=== PATIENT | male | born 1940 | race Caucasian/White ===

== ENCOUNTER 2019-10-30 16:17 | Inpatient (IN) | payer MEDICARE, OTHER ==
[~2019-10-30] VITALS: Ht 167.6 cm; Wt 83.9 kg
[2019-10-30] MEDS ORDERED: ASPI-1169 PO (16:29)
[2019-10-30] MEDS ORDERED: APIX5TAB PO (16:29)
[2019-10-30] MEDS ORDERED: ROSU5TAB PO (16:29)
[2019-10-30] MEDS ORDERED: HALO5TAB PO (16:29)
[2019-10-30] MEDS ORDERED: CARV12.52 PO (16:29)
[2019-10-30] MEDS ORDERED: REPA2TAB10 PO (16:29)
[2019-10-30] MEDS ORDERED: GABA600T12 PO (16:29)
[2019-10-30] MEDS ORDERED: TAMS-12 PO (16:29)
[2019-10-30] MEDS ORDERED: METF-881 PO (16:29)
[2019-10-30] MEDS ORDERED: AMLO5TAB4 PO (16:29)
[2019-10-30] MEDS ORDERED: DOCU-141 PO (16:29)
[2019-10-30] MEDS ORDERED: TOPI100T38 PO (16:29)
[2019-10-30] MEDS ORDERED: CLON0.5T4 PO (16:29)
[2019-10-30] MEDS ORDERED: FLUO20CA42 PO (16:29)
[2019-10-30] MEDS ORDERED: PANT40TA2 PO (16:29)
[2019-10-30] MEDS ORDERED: MISO200T PO (16:29)
[2019-10-30] MEDS ORDERED: OXYB-58 PO (16:29)
[2019-10-30] MEDS ORDERED: ZOLP5TAB8 PO (16:29)
[2019-10-30] MEDS ORDERED: FURO-145 PO (16:29)
[2019-10-30] MEDS ORDERED: IV NS 0.9% 1,000 ML BAG IV ONE (16:30)
--- NOTE | 2019-10-30 16:36 | NUR ---
[facility]AIAH FROM SNF TO ER BED 12. AAOX2. NOT IN RESP DISTRESS. BROUGHT IN FOR NOT TAKING HIS MEDICATION AND NOT EATING. FOR PSYCH AND MEDICAL EVALUATION. PT DENIES THAT HE IS SUICIDAL NOR HOMICIDAL. DENIES ANY HALLUCINATIONS. MD WAS AT THE BEDSIDE FOR EVAL. ORDERS RECEIVED NOTED AND CARREID OUT
[2019-10-30 17:15] LABS: HEMATOCRIT 41 % (39-51); LYMPHOCYTES # (AUTO) 1.9 /CMM (0.8-4.8); MEAN CORPUSCULAR HGB CONC 33 g/dl (31.0-36.0); NEUTROPHILS # (AUTO) 5.9 /CMM (1.8-8.9); WHITE BLOOD COUNT (AUTO) 8.9 K/uL (4.3-11.0)
[2019-10-30 17:18] LABS: BASOPHILS % (AUTO) 0.6 % (0.0-2.0); EOSINOPHILS % (AUTO) 1.6 % (0.0-6.0); HEMOGLOBIN 13.4 g/dL (13.5-17.5); MEAN CORPUSCULAR VOLUME 90 fL (80-96); MONOCYTES # (AUTO) 0.9 /CMM (0.1-1.30); MONOCYTES % (AUTO) 10.3 % (2.0-12.0); NEUTROPHILS % (AUTO) 66.5 % (43.0-81.0); PLATELET COUNT (AUTO) 434 /CMM (150-450); RED BLOOD CELL COUNT(AUTO) 4.58 MIL/uL (4.5-6.0)
[2019-10-30 17:30] LABS: CREATININE 1.2 mg/dL (0.6-1.3); POTASSIUM 4.3 mmol/L (3.5-5.1)
[2019-10-30 17:36] LABS: ALBUMIN 2.7 g/dL (3.4-5.0); BILIRUBIN,DIRECT 0.1 mg/dL (0.0-0.2); BILIRUBIN,TOTAL 0.3 mg/dL (0.2-1.0); TOTAL PROTEIN, SERUM 7.9 g/dL (6.4-8.2)
[2019-10-30 19:29] LABS: APPEARANCE,URINE Clear (CLEAR); BILIRUBIN,URINE MODERATE (NEGATIVE); BLOOD, URINE Trace-lysed Ery/uL (NEGATIVE); COLOR,URINE Yellow (YELLOW); KETONES,URINE 40 (NEGATIVE); LEUKOCYTE ESTERASE ,URINE Trace (NEGATIVE); NITRITE, URINE Negative (NEGATIVE); PH,URINE 5.5 (5.0-8.0); PROTEIN,URINE 30 mg/dl (NEGATIVE); UGLUCOSE Negative (NEGATIVE); UROBILINOGEN,URINE 0.2 EU/dL (0.2)
[2019-10-30 19:47] LABS: BACTERIA,URINE Few /HPF (None Seen); HYALINE CASTS, URINE Few /LPF (None Seen); SQUAMOUS EPITHELIAL CELL,UR Few /HPF (None Seen); URINE AMORPHOUS URATE Few /HPF (None Seen); WBC,URINE 21-50 /HPF (0-3)
[2019-10-30 19:48] LABS: MUCUS,URINE Few /LPF (None Seen)
--- NOTE | 2019-10-30 21:55 | NUR ---
report given to [facility] for [facility]amin
--- NOTE | 2019-10-30 22:15 | NUR ---
PT WAS TRANSPORTED TO UNIT ON BGURNEY WITH EMT AND RN AT BEDSIDE W/ ACLS PROTOCOL. NAD NOTED DURING TRANSPORT.
[2019-10-30] MEDS ORDERED: IV NS 0.9% 1,000 ML IV SCH (23:30)
[2019-10-31] VITALS (7 sets, daily range): BP systolic 123–180; BP diastolic 60–90
--- NOTE | 2019-10-31 05:42 | NUR ---
RN notes Admitted a 79 year old male from ER via stretcher with with diagnosis of acute coronary syndrome. Alert and oriented. Able to verbally communicate needs. No complaint of pain or discomfort. On room air breathing even and unlabored. Kept clean and dry. Will endorse to next shift for continuity of care.
[2019-10-31 07:00] LABS: BASOPHILS % (AUTO) 0.7 % (0.0-2.0); EOSINOPHILS % (AUTO) 2.6 % (0.0-6.0); HEMATOCRIT 37 % (39-51); HEMOGLOBIN 11.8 g/dL (13.5-17.5); LYMPHOCYTES # (AUTO) 1.8 /CMM (0.8-4.8); LYMPHOCYTES % (AUTO) 27.2 % (20.0-44.0); MEAN CORPUSCULAR HGB CONC 32 g/dl (31.0-36.0); MEAN CORPUSCULAR VOLUME 91 fL (80-96); MONOCYTES # (AUTO) 0.8 /CMM (0.1-1.30); MONOCYTES % (AUTO) 11.7 % (2.0-12.0); NEUTROPHILS # (AUTO) 3.8 /CMM (1.8-8.9); NEUTROPHILS % (AUTO) 57.8 % (43.0-81.0); PLATELET COUNT (AUTO) 376 /CMM (150-450); RED BLOOD CELL COUNT(AUTO) 4.05 MIL/uL (4.5-6.0); WHITE BLOOD COUNT (AUTO) 6.6 K/uL (4.3-11.0)
[2019-10-31 07:24] LABS: ALBUMIN 2.2 g/dL (3.4-5.0); BILIRUBIN,TOTAL 0.4 mg/dL (0.2-1.0); CALCIUM, SERUM 8.8 mg/dL (8.5-10.1); MAGNESIUM 1.8 mg/dL (1.8-2.4); PHOSPHORUS 3.8 mg/dL (2.5-4.9); TOTAL PROTEIN, SERUM 6.6 g/dL (6.4-8.2)
--- NOTE | 2019-10-31 07:55 | NUR ---
RN NOTES RECEIVED HAND OFF REPORT FROM ARRON YU FOR DELMY UNTIIL REPLACEMENT RN ARRIVES. WILL CONT. TO MONITOR
[2019-10-31 08:07] LABS: POTASSIUM 3.9 mmol/L (3.5-5.1)
[2019-10-31 08:33] LABS: EOSINOPHILS % (MANUAL) 2 % (0-4); LYMPHOCYTES % (MANUAL) 22 % (16-48); MONOCYTES % (MANUAL) 8 % (0-11.0); NEUTROPHILS % (MANUAL) 68 (42-76)
--- NOTE | 2019-10-31 08:45 | NUR ---
RN OPENING NOTES RECEIVED REPORT FROM KENYON YU. PT IN BED. AWAKE, ALERT AND ORIENTED. NO CARDIAC OR RESPIRATORY DISTRESS NOTED. NO SOB NOTED. SATURATING WELL ON ROOM AIR. IV ACCESS NOTED ON R AC G20. INTACT AND PATENT ANF FLUSHING WELL WITH NS RUNNING AT 70ML/HR. SAFETY PRECAUTIONS IN PLACE. BED LOCKED AND IN LOW POSITION. SIDE RAILS UP X2. BED ALARM ON. CALL LIGHT WITHIN REACH.
[2019-10-31] MEDS ORDERED: MISOPROSTOL 200 MCG TABLET PO SCH (09:00)
[2019-10-31] MEDS: REPAGLINIDE 2 MG TABLET PO SCH ×2 (09:00→12:42)
[2019-10-31] MEDS: TOPIRAMATE 100 MG TABLET PO SCH ×3 (09:29→16:28)
[2019-10-31] MEDS: METFORMIN XR 500 MG TAB.SR.24H PO SCH ×3 (09:30→16:28)
[2019-10-31] MEDS: HALOPERIDOL 5 MG TABLET PO SCH ×3 (09:30→16:28)
[2019-10-31] MEDS: OXYBUTYNIN CHLORIDE ER 5 MG TAB PO SCH ×2 (09:30→09:31)
[2019-10-31] MEDS: FLUOXETINE HCL 20 MG CAPSULE PO SCH (09:30)
[2019-10-31] MEDS: GABAPENTIN 300 MG CAPSULE PO SCH ×5 (09:30→21:00)
[2019-10-31] MEDS: clonazePAM 0.5 MG TABLET PO SCH ×3 (09:30→16:28)
[2019-10-31] MEDS: AMLODIPINE BESYLATE 5 MG TABLET PO SCH (09:30)
[2019-10-31] MEDS: FUROSEMIDE 20 MG TABLET PO SCH ×2 (09:30→09:31)
[2019-10-31] MEDS: CARVEDILOL 12.5 MG TABLET PO SCH ×3 (09:30→21:00)
[2019-10-31] MEDS: ASPIRIN 81 MG TAB.CHEW PO SCH (09:30)
[2019-10-31] MEDS: APIXABAN 5 MG TABLET PO SCH ×3 (09:30→16:27)
[2019-10-31] MEDS: DOCUSATE SODIUM 100 MG CAPSULE PO SCH ×2 (09:30→16:27)
--- NOTE | 2019-10-31 10:00 | NUR ---
REFUSED ALL AM MEDS PT REFUSED ALL AM MEDS. STATES HE HASNT BEEN TAKING HIS MEDICATION FOR A MONTH NOW. EDUCATED PT REGARDING RISKS, CONSEQUENCES AND NEGATIVE OUTCOMES OF NON COMPLIANT BEHAVIORS. PT STILL REFUSED.
--- NOTE | 2019-10-31 10:15 | NUR ---
SEEN BY PSYCH PT SEEN BY DR. LIMA PSYCHIATRY VIA [employer]. NOTIFIED MD REGARDING PTS NON COMPLIANCE WITH MEDICATIONS. MD SPOKE TO PT. PT STILL REFUSED.
[2019-10-31] MEDS ORDERED: IV NS 0.9% 1,000 ML IV PRN (11:30)
--- NOTE | 2019-10-31 11:45 | NUR ---
RECHECKED BP BP RECHECKED NOW STABLE AT 123/60. DR. WEATHERS MADE AWARE.
--- NOTE | 2019-10-31 12:00 | NUR ---
SEEN BY DR. WEATHERS PT SEEN BY DR. WEATHERS VIA [employer]. NOTIFIED MD REGARDING PTS NON COMPLIANCE WITH MEDICATIONS. MD SPOKE TO PT. PT STILL REFUSED.
--- NOTE | 2019-10-31 12:05 | NUR ---
CRESTOR/PRANDIN ALSO NOTIFIED DR. WEATHERS THAT ACCORDING TO PHARMACY, THE HOSPITAL DOES NOT SUPPLY PRANDIN. PER MD, HE MAY DISCONTINUE MEDICATION. SINCE PT MIGHT NOT NEED IT. ALSO NOTIFIED MD REGARDING CRESTOR AND PTS ALLERGY TO STATINS. ACCORDING TO PT HE WAS TAKING CRESTOR BEFORE BUT WAS NOT EXPERIENCING ANY SIDE EFFECTS. HOWEVER, ACCORDING TO DR. WEATHERS ALL OF THESE ARE POINTLESS IF PT IS REFUSING ALL HIS MEDICATIONS. PT STILL ADAMANT ABOUT NOT TAKING MEDS. EXPLAINED RISKS, CONSEQUENCES AND NEGATIVE OUTCOMES OF HIS NON COMPLIANT BEHAVIORS. STILL REFUSED.
[2019-10-31] MEDS: MISOPROSTOL 100 MCG TABLET PO SCH ×3 (12:41→21:00)
--- NOTE | 2019-10-31 13:00 | NUR ---
REFUSED ALL NOON MEDS PT REFUSED ALL NOON TIME MEDS. EXPLAINED RISKS, CONSEQUENCES AND NEGATIVE OUTCOMES OF NON COMPLIANT BEHAVIORS. STILL REFUSED. DR. WEATHERS MADE AWARE.
--- NOTE | 2019-10-31 14:19 | NUR ---
DR. WEATHERS NOTIFIED PATIENT PCR COVID NEGATIVE,NURSING SUP MADE AWARE,AWAITS NONCOVID FLOOR.
--- NOTE | 2019-10-31 14:20 | NUR ---
TRANSFER TO MS FLOOR PT WAS TRANSFERRED TO MS FLOOR. NON COVID UNIT SINCE PT COVID PCR RESULTS CAME BACK NEGATIVE. REPORT GIVEN TO ELBA SEQUEIRA RN WHO WILL BE ASSUMING CARE FOR THIS PT.
--- NOTE | 2019-10-31 15:15 | NUR ---
pt. arrived here from [facility].vitals checked and bp high.rn instructed pt. on dangers of elevated bp.pt. states will not take any med for blood pressure.
--- NOTE | 2019-10-31 16:21 | NUR ---
bp rechecked and now 166/87,heart rate 80.rn again discussed need for bp meds.pt. states still will not take any meds.furnace operator informed of pt. status.
[2019-10-31] MEDS: REPAGLINIDE 0.5 MG TABLET PO SCH (16:28)
--- NOTE | 2019-10-31 18:00 | NUR ---
refused dae. meds,although given need for them.
--- NOTE | 2019-10-31 19:30 | NUR ---
MS RN NOTES RECEIVED ON BED A/O X2-3,BREATHING EASY,NO SOB.IVF NS AT 75ML/HR RATE IN PROGRESS.SITE PATENT ON RIGHT FOREARM,.FALL RISK,BED ALARM ON.NOTED BRUISING ON RIGHT EYE MOSHE ORBITAL AREA DUE TO FALL.DENIES DISCOMFORTS AT THE MOMENT CALL LIGHT IN REACH,NEEDS ANTICIPATED.
[2019-10-31] MEDS: TAMSULOSIN 0.4 MG CAP.SR.24H PO SCH (21:19)
--- NOTE | 2019-10-31 21:30 | NUR ---
MS RN NOTES ALL DUE MEDS OFFERED BUT REFUSED.EXPLAINED RISK AND BENEFIT OF MED COMPLIANCE BUT STILL REFUSED.CHARGE NURSE PRASHANTH MILLER.
[2019-10-31] MEDS ORDERED: ZOLPIDEM TARTRATE 10 MG TABLET PO SCH (22:00)
[2019-10-31] MEDS ORDERED: TAMSULOSIN 0.4 MG CAP.SR.24H PO SCH (22:00)
[2019-10-31] MEDS ORDERED: ROSUVASTATIN 5 MG PO SCH (22:00)
[2019-10-31] MEDS ORDERED: ZOLPIDEM TARTRATE 10 MG TABLET PO PRN (22:00)
--- NOTE | 2019-11-01 06:24 | NUR ---
MS RN NOTES LATEST BLOOD PRESSURE 196/86,HR-66,DENIES PAIN ,NO HEADACHE.HE WANTS ONLY IVF THIS TIME.HE EVEN SHOW FIST TO THE NURSE.CALL LIGHT IN REACH,NEEDS ATTENDED.WILL ENDORSE TO DAY NURSE FOR DELMY
[2019-11-01] MEDS: PANTOPRAZOLE 40 MG TABLET.DR PO SCH (07:19)
--- NOTE | 2019-11-01 07:24 | NUR ---
rn notes patient received on room air, no sob noted, a/o x2 and is confused at times. Refusing everything, per patient he does not want to take any medications because "god will kill him if he takes it". Seen with bruised R eye. NS @ 75 ml per hour @ FA 20. Bed at the lowest setting, call light within reach, side rails up x2.
[2019-11-01 08:00] VITALS: BP 185/94
[2019-11-01] MEDS: ASPIRIN 81 MG TAB.CHEW PO SCH (08:24)
[2019-11-01] MEDS: APIXABAN 5 MG TABLET PO SCH ×2 (08:25→16:31)
[2019-11-01] MEDS: FUROSEMIDE 20 MG TABLET PO SCH (08:25)
[2019-11-01] MEDS: REPAGLINIDE 0.5 MG TABLET PO SCH ×3 (08:25→16:32)
[2019-11-01] MEDS: DOCUSATE SODIUM 100 MG CAPSULE PO SCH ×2 (08:25→16:31)
[2019-11-01] MEDS: AMLODIPINE BESYLATE 5 MG TABLET PO SCH (08:25)
[2019-11-01] MEDS: GABAPENTIN 300 MG CAPSULE PO SCH ×4 (08:25→21:05)
[2019-11-01] MEDS: CARVEDILOL 12.5 MG TABLET PO SCH (08:25)
[2019-11-01] MEDS: MISOPROSTOL 100 MCG TABLET PO SCH ×4 (08:25→21:00)
[2019-11-01] MEDS: METFORMIN XR 500 MG TAB.SR.24H PO SCH ×2 (08:25→16:31)
[2019-11-01] MEDS: clonazePAM 0.5 MG TABLET PO SCH ×3 (08:25→16:31)
[2019-11-01] MEDS: OXYBUTYNIN CHLORIDE ER 5 MG TAB PO SCH (08:25)
[2019-11-01] MEDS: HALOPERIDOL 5 MG TABLET PO SCH ×2 (08:25→16:31)
[2019-11-01] MEDS: TOPIRAMATE 100 MG TABLET PO SCH ×2 (08:26→16:32)
[2019-11-01] MEDS: FLUOXETINE HCL 20 MG CAPSULE PO SCH (08:26)
[2019-11-01] MEDS ORDERED: CLONIDINE HCL 0.1MG/24H PTWK 1 EA PATCH TD SCH (15:30)
[2019-11-01 16:00] VITALS: BP 174/93
--- NOTE | 2019-11-01 17:47 | NUR ---
rn closing notes patient remains on room air, no sob noted, a/o x2 and is confused at times. Refusing everything, per patient he does not want to take any medications because "god will kill him if he takes it". Seen with bruised R eye. NS @ 75 ml per hour @ FA 20. Bed at the lowest setting, call light within reach, side rails up x2.
--- NOTE | 2019-11-01 19:20 | NUR ---
MS RN OPEN NOTES PATIENT IS LAYING IN BED. A/O X2. ON RA, NO SOB/ ACUTE RESPIRATORY DISTRESS NOTED. APPEARS COMFORTABLE/ NO COMPLAINTS OF PAIN AT THE MOMENT. BED IS IN LOWEST LOCKED POSITION WITH SIDE RAILS UP X3, SEMI FOWLERS. CALL LIGHT IS WITHIN REACH. WILL CONTINUE TO MONITOR.
[2019-11-01 20:00] VITALS: BP 160/80
[2019-11-01] MEDS: TAMSULOSIN 0.4 MG CAP.SR.24H PO SCH (21:09)
[2019-11-01] MEDS ORDERED: QUETIAPINE FUMARATE 100 MG TABLET PO SCH (22:00)
[2019-11-02] MEDS: ACETAMINOPHEN 325 MG TABLET PO PRN (04:37)
--- NOTE | 2019-11-02 06:30 | NUR ---
MS RN CLOSE NOTES PATIENT IS LAYING IN BED. A/O X2, PERIODS OF CONFUSION. ON RA, NO SOB/ ACUTE RESPIRATORY DISTRESS NOTED. APPEARS COMFORTABLE/ NO COMPLAINTS OF PAIN AT THE MOMENT. PT REFUSED MOST MEDS, AND REFUSED PICTURES. BED IS IN LOWEST LOCKED POSITION WITH SIDE RAILS UP X3, SEMI FOWLERS. CALL LIGHT IS WITHIN REACH. WILL ENDORSE TO AM NURSE.
--- NOTE | 2019-11-02 07:30 | NUR ---
Patient awake alert and oriented x2 , confused . Patient able to make needs known. Safety precautions in place , call light within reach. will continue to monitor.
[2019-11-02 08:00] VITALS: BP 129/72
[2019-11-02] MEDS: TOPIRAMATE 100 MG TABLET PO SCH ×2 (08:11→16:59)
[2019-11-02] MEDS: FUROSEMIDE 20 MG TABLET PO SCH (08:12)
[2019-11-02] MEDS: GABAPENTIN 300 MG CAPSULE PO SCH ×4 (08:12→21:05)
[2019-11-02] MEDS: clonazePAM 0.5 MG TABLET PO SCH ×3 (08:12→16:59)
[2019-11-02] MEDS: OXYBUTYNIN CHLORIDE ER 5 MG TAB PO SCH (08:12)
[2019-11-02] MEDS: PANTOPRAZOLE 40 MG TABLET.DR PO SCH (08:12)
[2019-11-02] MEDS: DOCUSATE SODIUM 100 MG CAPSULE PO SCH ×2 (08:12→16:59)
[2019-11-02] MEDS: HALOPERIDOL 5 MG TABLET PO SCH ×2 (08:12→16:59)
[2019-11-02] MEDS: FLUOXETINE HCL 20 MG CAPSULE PO SCH (08:13)
[2019-11-02] MEDS: APIXABAN 5 MG TABLET PO SCH ×2 (08:18→17:05)
[2019-11-02] MEDS: REPAGLINIDE 0.5 MG TABLET PO SCH ×2 (09:00→12:47)
[2019-11-02] MEDS: METFORMIN XR 500 MG TAB.SR.24H PO SCH ×2 (09:00→17:02)
[2019-11-02] MEDS: MISOPROSTOL 100 MCG TABLET PO SCH ×4 (09:00→21:06)
--- NOTE | 2019-11-02 11:42 | NUR ---
Dr. Kim spoke with patient via face time. No new orders for now
[2019-11-02 16:00] VITALS: BP 124/61
[2019-11-02] MEDS: REPAGLINIDE 2 MG TABLET PO SCH (16:59)
--- NOTE | 2019-11-02 19:26 | NUR ---
Patient remains on room air, no sob noted, a/o x2 ; confused at times. Patient was taking meds today, poor appetite. Fluids d/c. Bed at the lowest setting, call light within reach, side rails up x2. Will endorse to next shift for DELMY
[2019-11-02 20:00] VITALS: BP 102/55
--- NOTE | 2019-11-02 20:14 | NUR ---
MS/RN OPENING NOTE Patient awake in bed. A/O x2, confused. Breath sounds clear, even, unlabored. No signs of acute distress or SOB. Redness noted in sacral region. Bruising noted around right eye. Skin warm, pink, dry, appropriate for ethnicity. IV site right forearm 20g, patent and intact. No signs of redness or infiltration. Bed in low position, wheels locked, side rails up x2, call light within reach.
[2019-11-02 20:57] VITALS: BP 102/55
[2019-11-02] MEDS: QUETIAPINE FUMARATE 100 MG TABLET PO SCH (21:05)
[2019-11-02] MEDS: TAMSULOSIN 0.4 MG CAP.SR.24H PO SCH (21:05)
--- NOTE | 2019-11-02 22:57 | NUR ---
MS/RN CLOSING NOTE Patient asleep in bed. A/O x2, confused. Breath sounds clear, even, unlabored. No signs of acute distress or SOB. Patient took all medications prescribed. IV site right forearm 20g, patent and intact. No signs of redness or infiltration. Bed in low position, wheels locked, side rails up x2, call light within reach.
--- NOTE | 2019-11-02 23:00 | NUR ---
MS RN NOTES RECEIVED REPORT FROM AIMEE DANIELS; WILL CONT PLAN OF CARE; WILL CONT TO MONITOR
[2019-11-03] VITALS (7 sets, daily range): BP systolic 81–104; BP diastolic 35–59
--- NOTE | 2019-11-03 06:47 | NUR ---
MS RN CLOSING NOTES PATIENT RESTING IN BED COMFORTABLY; A/OX2-3 WITH EPISODES OF CONFUSION; R FA # 20 INTACT AND PATENT, FLUSHING WELL; NO S/S OF REDNESS OR INFILTRATION NOTED; PER PREVIOUS NURSE, PATIENT CAN SOMETIMES BE NON-COMPLIANT BUT WAS COMPLIANT THROUGHOUT SHIFT; WILL INFORM DAY SHIFT; ALL NEEDS RENDERED; SAFETY PRECAUTIONS IMPLEMENTED; BED LOCKED IN LOW POSITION; SIDE RAILSX2; CALL LIGHT WITHIN REACH; WILL ENDORSE DELMY TO ONCOMING SHIFT
[2019-11-03] MEDS: PANTOPRAZOLE 40 MG TABLET.DR PO SCH (07:30)
--- NOTE | 2019-11-03 07:45 | NUR ---
Received patient in bed , non-responsive to pain. Patient assessed ; VS are taken and documented < BS checked , saturation on room air 95%. Patient placed on O2 2l via NS and dr. Alarcon notified
--- NOTE | 2019-11-03 08:05 | NUR ---
Patient remains non-responsive to stimuli and rapid response called Addendum: 11/03/19 at 1029 by SHERIE LATHAM RN see rapid response form
--- NOTE | 2019-11-03 08:10 | NUR ---
Orders from dr. Alarcon; CT-head STAT, CBC,BMP <D-dimer< ABG STAT.
--- NOTE | 2019-11-03 08:10 | NUR ---
Patient placed to TELE monitor for observation and taken to Radiology for CT-head
[2019-11-03 08:37] LABS: ABG BASE EXCESS -5.3 mmol/L; ABG PCO2 35.9 mmHg (35.0-45.0); ABG PH 7.353 (7.350-7.450); ABG PO2 109.3 mmHg (75.0-100.0); COHb 0.3 % (0.5-1.5); MetHb 0.3 % (0.0-1.5); O2Hb 97.4 % (94.0-97.0); SITE, ABG Right Femoral; VENT MODE, BG ROOM AIR
[2019-11-03] MEDS: clonazePAM 0.5 MG TABLET PO SCH ×3 (09:00→17:00)
[2019-11-03] MEDS: GABAPENTIN 300 MG CAPSULE PO SCH (09:00)
[2019-11-03] MEDS: METFORMIN XR 500 MG TAB.SR.24H PO SCH ×2 (09:00→17:00)
[2019-11-03] MEDS ORDERED: BENAZEPRIL HCL 10 MG TABLET PO SCH (09:00)
[2019-11-03] MEDS: APIXABAN 5 MG TABLET PO SCH ×2 (09:00→17:00)
[2019-11-03] MEDS: HALOPERIDOL 5 MG TABLET PO SCH ×2 (09:00→17:00)
[2019-11-03] MEDS: OXYBUTYNIN CHLORIDE ER 5 MG TAB PO SCH (09:00)
[2019-11-03] MEDS: DOCUSATE SODIUM 100 MG CAPSULE PO SCH ×2 (09:00→17:00)
[2019-11-03] MEDS: FLUOXETINE HCL 20 MG CAPSULE PO SCH (09:00)
[2019-11-03] MEDS: REPAGLINIDE 2 MG TABLET PO SCH (09:00)
[2019-11-03] MEDS: TOPIRAMATE 100 MG TABLET PO SCH ×2 (09:00→17:00)
[2019-11-03] MEDS: FUROSEMIDE 20 MG TABLET PO SCH (09:00)
[2019-11-03] MEDS: MISOPROSTOL 100 MCG TABLET PO SCH (09:00)
--- NOTE | 2019-11-03 09:17 | NUR ---
CT-head, ABG's results reported to . Per dr. Alarcon no new orders; patient sedated , no PO meds for 24 Hr. NO IV fluids. Will continue to monitor patient's VS , and assess accordingly.
[2019-11-03 10:30] LABS: BASOPHILS # (AUTO) 0.1 /CMM (0.0-0.2); BASOPHILS % (AUTO) 0.5 % (0.0-2.0); EOSINOPHILS % (AUTO) 1.6 % (0.0-6.0); HEMATOCRIT 39 % (39-51); HEMOGLOBIN 12.5 g/dL (13.5-17.5); LYMPHOCYTES # (AUTO) 1.4 /CMM (0.8-4.8); LYMPHOCYTES % (AUTO) 9.5 % (20.0-44.0); MEAN CORPUSCULAR HGB CONC 32 g/dl (31.0-36.0); MEAN CORPUSCULAR VOLUME 91 fL (80-96); MONOCYTES # (AUTO) 0.8 /CMM (0.1-1.30); MONOCYTES % (AUTO) 5.4 % (2.0-12.0); NEUTROPHILS # (AUTO) 12.6 /CMM (1.8-8.9); PLATELET COUNT (AUTO) 458 /CMM (150-450); RED BLOOD CELL COUNT(AUTO) 4.35 MIL/uL (4.5-6.0); WHITE BLOOD COUNT (AUTO) 15.2 K/uL (4.3-11.0)
[2019-11-03 10:36] LABS: CALCIUM, SERUM 9.2 mg/dL (8.5-10.1); CARBON DIOXIDE 22 mmol/L (21-32); CHLORIDE 99 mmol/L (98-107); CREATININE 2.5 mg/dL (0.6-1.3); GLUCOSE 155 mg/dL (74-106); POTASSIUM 3.9 mmol/L (3.5-5.1); SODIUM SERUM 134 mmol/L (136-145); UREA NITROGEN, BLOOD 35 mg/dL (7-18)
--- NOTE | 2019-11-03 14:40 | NUR ---
Patient remains lethargic, he does respond to painful stimuli by opening his eyes and moving both lower extremely. Currently on O2 1.0 L via NS saturation 99%. Continue to monitor VS
--- NOTE | 2019-11-03 17:15 | NUR ---
Patient remains lethargic, responds a bit on sternum rubs. VS at this time 100/53 , HR 75, saturation 97% on O2 2L via NS , RR 19, temp 97.4 , infusing normal saline 0.9 % at 100ml/hr. Dr. Alarcon updated . New order ; EEG with no neuro consult only reading, CMP, Ammonia level, BMP daily Orders are taken and carried out. Will continue to monitor patient.
--- NOTE | 2019-11-03 17:30 | NUR ---
A new IV line to the left wrist g22 , flushing well. Previous IV assess was removed due to leaking
--- NOTE | 2019-11-03 19:10 | NUR ---
Patient is less lethargic, able to response to pain. VS are stable , no respiratory distress at this time. All needs attended, patient kept clean and dry. IV fluid running as ordered.Safety precautions implemented , head of the bed elevated, call light within reach. Will endorse to next shift for DELMY.
[2019-11-03 19:14] LABS: SERUM AMMONIA < 10 umol/L (11-32)
[2019-11-03 19:25] LABS: CALCIUM, SERUM 9.3 mg/dL (8.5-10.1); CARBON DIOXIDE 26 mmol/L (21-32); CHLORIDE 101 mmol/L (98-107); CREATININE 3.1 mg/dL (0.6-1.3); GLUCOSE 105 mg/dL (74-106); SODIUM SERUM 139 mmol/L (136-145); UREA NITROGEN, BLOOD 43 mg/dL (7-18)
[2019-11-03 19:30] LABS: ALANINE AMINOTRANSFERASE 24 U/L (12-78); ALBUMIN 2.6 g/dL (3.4-5.0); ALKALINE PHOSPHATASE 93 U/L (46-116); ASPARTATE AMINOTRANSFERASE 27 U/L (15-37); BILIRUBIN,TOTAL 0.3 mg/dL (0.2-1.0); TOTAL PROTEIN, SERUM 7.1 g/dL (6.4-8.2)
--- NOTE | 2019-11-03 20:00 | NUR ---
MS RN NOTES RECEIVED PATIENT IN BED, LETHARGIC, RESPONDS TO TOUCH AND VERBAL, O2 @ 2LPM VIA NASAL CANNULA, UNLABORED BREATHING, NO SIGNS OF RESPIRATORY DISTRESS, HOLD PO MEDS PER AM NURSE PER DR. WEATHERS, SIDE RAILS UP.
--- NOTE | 2019-11-03 21:27 | NUR ---
MS RN NOTES PATIENT'S BP- 105/53, HR- 71.
[2019-11-03] MEDS: IV NS 0.9% 1,000 ML IV PRN (21:43)
[2019-11-03] MEDS: QUETIAPINE FUMARATE 100 MG TABLET PO SCH (22:00)
--- NOTE | 2019-11-03 22:09 | NUR ---
MS RN NOTES TEXTED DR. SARAHY OLIVA I AND AMMONIA LAB RESULTS.
--- NOTE | 2019-11-03 22:14 | NUR ---
MS RN NOTES BP- 92/45, HR- 64.
--- NOTE | 2019-11-03 22:15 | NUR ---
MS RN NOTES HOLD PO MEDS. PER DR. WEATHERS.
--- NOTE | 2019-11-03 23:09 | NUR ---
MS RN NOTES BP- 91/48, HR- 58.
--- NOTE | 2019-11-04 00:16 | NUR ---
MS RN NOTES BP- 93/51, HR- 60.
--- NOTE | 2019-11-04 02:24 | NUR ---
MS RN NOTES BP- 100/55, HR- 56.
[2019-11-04 03:03] VITALS: BP 130/63
[2019-11-04] MEDS: IV NS 0.9% 1,000 ML IV PRN ×2 (06:03→21:58)
--- NOTE | 2019-11-04 06:48 | NUR ---
MS RN CLOSING NOTES ENDORSED PATIENT IN BED, LETHARGIC, RESPONDS TO TOUCH AND VERBAL, O2 @ 2LPM VIA NASAL CANNULA, UNLABORED BREATHING, NO SIGNS OF RESPIRATORY DISTRESS, HOLD PO MEDS PER AM NURSE PER DR. WEATHERS, MONITORED BP, SIDE RAILS UP FOR SAFETY.
[2019-11-04 07:17] LABS: CALCIUM, SERUM 8.5 mg/dL (8.5-10.1); CARBON DIOXIDE 23 mmol/L (21-32); CHLORIDE 103 mmol/L (98-107); CREATININE 2.9 mg/dL (0.6-1.3); GLUCOSE 89 mg/dL (74-106); POTASSIUM 3.6 mmol/L (3.5-5.1); SODIUM SERUM 139 mmol/L (136-145); UREA NITROGEN, BLOOD 44 mg/dL (7-18)
--- NOTE | 2019-11-04 07:22 | NUR ---
RN OPENING NOTE Patient is resting in bed, A/O x1, arousable to name when called, able to say "hello, good morning." Per Dr. Alarcon, to hold Psych meds and follow-up with Dr. Kim to see which medication he wants the patient to be on. Ok for patient to take other meds and to eat breakfast per MD. IV line in the left hand #22g is clean and intact running NS @ 100mls/hour. Bed is in lowest position, side rails x3 in upright position, call light is within reach, fall safety and aspiration precautions enforced. Will continue with plan of care.
[2019-11-04 08:00] VITALS: BP_SYST 110; BP_SYST 20; BP_DIAS 100; BP_DIAS 47
[2019-11-04] MEDS: PANTOPRAZOLE 40 MG TABLET.DR PO SCH (08:49)
[2019-11-04] MEDS: DOCUSATE SODIUM 100 MG CAPSULE PO SCH ×2 (08:49→16:25)
[2019-11-04] MEDS: APIXABAN 5 MG TABLET PO SCH ×2 (08:49→16:24)
[2019-11-04] MEDS: TOPIRAMATE 100 MG TABLET PO SCH ×2 (08:49→16:25)
[2019-11-04] MEDS: HALOPERIDOL 5 MG TABLET PO SCH ×2 (09:00→16:26)
[2019-11-04] MEDS: FLUOXETINE HCL 20 MG CAPSULE PO SCH (09:00)
[2019-11-04] MEDS: clonazePAM 0.5 MG TABLET PO SCH ×3 (09:00→16:26)
[2019-11-04] MEDS: METFORMIN XR 500 MG TAB.SR.24H PO SCH ×2 (09:10→16:25)
--- NOTE | 2019-11-04 13:09 | NUR ---
RN NOTE Texted Dr. Alarcon twice and paged through exchange twice to ask for order for Midline and swallow evaluation. No response, will follow-up. Charge nurse made aware.
--- NOTE | 2019-11-04 13:54 | NUR ---
RN NOTE Patient spoke with Dr. Kim over facetime and per Dr. Kim, continue to hold psych meds.
--- NOTE | 2019-11-04 14:29 | NUR ---
RN NOTE Charge nurse spoke with Dr. Alarcon and received order for midline insertion and BMP labs for today and the following 5 days. Nursing Intake Nurse made aware. Addendum: 11/04/19 at 1530 by NELY GRIFFIN RN expected ETA for midline insertion around 1500 per Nursing steam powerplant supervisor.
[2019-11-04 16:00] VITALS: BP 120/55
[2019-11-04 16:18] VITALS: BP 120/55
[2019-11-04 17:12] LABS: CALCIUM, SERUM 8.9 mg/dL (8.5-10.1); CARBON DIOXIDE 22 mmol/L (21-32); CHLORIDE 102 mmol/L (98-107); CREATININE 2.8 mg/dL (0.6-1.3); GLUCOSE 153 mg/dL (74-106); POTASSIUM 3.7 mmol/L (3.5-5.1); SODIUM SERUM 135 mmol/L (136-145); UREA NITROGEN, BLOOD 44 mg/dL (7-18)
--- NOTE | 2019-11-04 18:49 | NUR ---
RN CLOSING NOTE Patient is resting in bed, A/O x2, responsive. BARB midline is running NS @ 100mls/hour. All patient needs met, all due medications given, patient kept clean and dry throughout shift. Continue to hold meds per MD. Bed is in lowest position, side rails x3 in upright position, call light is within reach, fall safety and aspiration precautions enforced. Will endorse to manager night.
--- NOTE | 2019-11-04 19:30 | NUR ---
MS RN NOTES RECEIVED ON BED A/O X 1,WITH EPISODE OF CONFUSION,BREATHING REGULAR,NOT IN ANY FORM OF DISTRESS.IVF NS 100ML/HR RATE IN PROGRESS ON BARB MIDLINE VIA IV PUMP.FALL PRECAUTION OBSERVED,BED ON LOWEST POSITION AND LOCKED.BED ALARM,CALL LIGHT IN REACH,NEEDS ANTICIPATED.
[2019-11-04 20:00] VITALS: BP 130/63
[2019-11-04] MEDS: QUETIAPINE FUMARATE 100 MG TABLET PO SCH (21:30)
--- NOTE | 2019-11-04 21:30 | NUR ---
MS RN NOTES SEROQUEL 200MG PO HELD,PER DR LIMA TO HOLD PSYCHE MEDS.
--- NOTE | 2019-11-04 23:00 | NUR ---
MS RN NOTES MIDLINE ACCIDENTALLY PULLED OUT.NEW SALINE LOCK PLACE ON RIGHT THUMB #24,SAME IVF INFUSING.
--- NOTE | 2019-11-05 03:30 | NUR ---
MS RN NOTES AWAKE,PATIENT PULLED OUT HIS SALINE LOCK RN RIGHT THUMB,OFFERED TO PUT NEW ONE BUT REFUSED THIS TIME.
--- NOTE | 2019-11-05 06:30 | NUR ---
MS RN NOTES ON BED A/O X2,WITH EPISODE F CONFUSION.OFFERED TWICE TO HAVE SALINE LOCK INSERTED BUT REFUSED.IVF ON HOLD,CALL LIGHT IN REACH,NEEDS ATTENDED.
--- NOTE | 2019-11-05 07:20 | NUR ---
RN OPENING NOTES PATIENT IN BED RESTING. A/OX1-2,CONFUSED, REORIENTED PATIENT. NOT IN ANY FORM OF DISTRESS. NO SOB. DENIED PAIN OR DISCOMFORT AT THIS TIME. NO IV ACCESS NOTED, PATIENT REFUSED INSERTION AT THIS TIME. BED IN LOW/LOCKED POSITION, SIDERAILS UPX2,CALL LIGHT IN REACH. BED ALARM ON. WILL CONT TO MONITOR ACCORDINGLY
[2019-11-05 07:51] LABS: CALCIUM, SERUM 9.2 mg/dL (8.5-10.1); CARBON DIOXIDE 23 mmol/L (21-32); CHLORIDE 103 mmol/L (98-107); CREATININE 1.4 mg/dL (0.6-1.3); GLUCOSE 189 mg/dL (74-106); POTASSIUM 3.6 mmol/L (3.5-5.1); SODIUM SERUM 138 mmol/L (136-145); UREA NITROGEN, BLOOD 34 mg/dL (7-18)
[2019-11-05 08:00] VITALS: BP 125/68
[2019-11-05] MEDS: PANTOPRAZOLE 40 MG TABLET.DR PO SCH (08:45)
[2019-11-05] MEDS: DOCUSATE SODIUM 100 MG CAPSULE PO SCH ×2 (08:45→17:27)
[2019-11-05] MEDS: TOPIRAMATE 100 MG TABLET PO SCH ×2 (08:45→17:28)
[2019-11-05] MEDS: APIXABAN 5 MG TABLET PO SCH ×2 (08:51→17:28)
[2019-11-05] MEDS: FLUOXETINE HCL 20 MG CAPSULE PO SCH (09:00)
[2019-11-05] MEDS: HALOPERIDOL 5 MG TABLET PO SCH ×2 (09:00→17:28)
[2019-11-05] MEDS: clonazePAM 0.5 MG TABLET PO SCH ×2 (09:00→13:00)
[2019-11-05 16:00] VITALS: BP 128/70
[2019-11-05] MEDS: IV NS 0.9% 1,000 ML IV PRN (18:13)
--- NOTE | 2019-11-05 19:11 | NUR ---
RN CLOSING NOTES PATIENT IN STABLE CONDITION. ALL NEED ATTENDED AND PROVIDED. ALL DUE MEDS GIVEN ORDERED. TURNED AND REPOSITIONED EVERY 2HRS AND NEEDED. KEPT PATIENT SAFE AND COMFORTABLE. BED IN LOW/LOCKED POSITION. SIDERAILS UP, HOB ELEVATED. ENDORSED ACCORDINGLY.
--- NOTE | 2019-11-05 19:30 | NUR ---
MS RN NOTES RECEIVED ON BED A/O X1-2,WITH EPISODE OF CONFUSION,RIGHT EYE BRUISING NOTED,IVF NS AT 100ML/GR RATE INFUSING ON MIDLINE VIA IV PUMP,SITE PATENT.FALL PRECAUTION OBSERVED,BED ALARM,BED ON LOWEST POSITION AND LOCKED,CALL LIGHT IN REACH,NEEDS ANTICIPATED.
[2019-11-05 20:00] VITALS: BP 121/73
[2019-11-05 20:45] VITALS: BP 121/73
[2019-11-06] MEDS: IV NS 0.9% 1,000 ML IV PRN ×2 (05:03→23:49)
--- NOTE | 2019-11-06 06:22 | NUR ---
MS RN NOTES SLEPT WELL AT NIGHT,NO SOB,ABLE TO COMMUNICATE BUT APPEARS ISOLATED.IN NO ACUTE DISTRESS.WILL ENDORSE TO DAY NURSE FOR DELMY.
[2019-11-06 06:47] LABS: CALCIUM, SERUM 9.1 mg/dL (8.5-10.1); CREATININE 1.2 mg/dL (0.6-1.3); POTASSIUM 3.6 mmol/L (3.5-5.1)
--- NOTE | 2019-11-06 07:20 | NUR ---
RN OPENING NOTES PATIENT IN BED RESTING. NOT IN ANY FORM OF DISTRESS. NO SOB. DENIED PAIN OR DISCOMFORT AT THIS TIME. IV ACCESS INTACT AND PATENT. KEPT PATIENT SAFE AND COMFORTABLE. BED IN LOW/LOCKED POSITION. SIDERAILS UPX2, BED ALARM ON. SEMIFOWLERS, CALL LIGHT IN REACH. WILL CONT TO MONITOR ACCORDINGLY.
[2019-11-06] MEDS: TOPIRAMATE 100 MG TABLET PO SCH ×2 (08:15→17:49)
[2019-11-06] MEDS: FLUOXETINE HCL 20 MG CAPSULE PO SCH (08:15)
[2019-11-06] MEDS: PANTOPRAZOLE 40 MG TABLET.DR PO SCH (08:15)
[2019-11-06] MEDS: HALOPERIDOL 5 MG TABLET PO SCH ×2 (08:15→17:48)
[2019-11-06] MEDS: DOCUSATE SODIUM 100 MG CAPSULE PO SCH ×2 (08:15→17:49)
[2019-11-06] MEDS: APIXABAN 5 MG TABLET PO SCH ×2 (08:17→17:48)
[2019-11-06 08:35] VITALS: BP 144/79
--- NOTE | 2019-11-06 08:35 | NUR ---
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 RECOMMENDATIONS MADE FOR SKIN CARE AND SKIN PROTECTION. DISCUSSED WITH NURSING STAFF. PT NOTED TO BE INCONTINENT OF URINE AND STOOL. WILL SEE PRN. BANEGAS IN AGREEMENT WITH PLAN OF CARE. Addendum: 11/06/19 at 0837 by MADI SIMPSONU Amended: Links added. Addendum: 11/06/19 at 0840 by MADI PIRES [facility]
[2019-11-06] MEDS: ACETAMINOPHEN 325 MG TABLET PO PRN (08:52)
[2019-11-06] MEDS ORDERED: Z GUARD REMEDY 2 OZ OINT TP PRN (09:00)
--- NOTE | 2019-11-06 09:30 | NUR ---
rn notes transferred to isoflex bed. patient tolerated well
[2019-11-06] MEDS: CLOTRIMAZOLE 1% 15 GM TUBE TP SCH ×2 (10:08→17:53)
[2019-11-06] MEDS: Z GUARD REMEDY 2 OZ OINT TP SCH (10:09)
[2019-11-06 16:08] VITALS: BP 146/76
--- NOTE | 2019-11-06 18:30 | NUR ---
RN NOTES PER DR WEATHERS, [place] [facility] [place]. ALSO PER DR WEATHERS, DC IVF TOMORROW AND ORDER CXR TOMORROW. 1844: DR LIMA FACETIMED THE PATIENT. AND PER DR LIMA, HE WILL ADMIT PATIENT IN GPS UNDER A HOLD.
--- NOTE | 2019-11-06 19:46 | NUR ---
RN NOTES ALERT AND ORIENTED X1, CALM, ANSWERS TO SIMPLE QUESTION, BARB MIDLINE, NS AT 100 ML/HR, FALL RISK, BED ALARM, WILL CONTINUE TO MONITOR.
[2019-11-06 20:00] VITALS: BP_SYST 126; BP_SYST 170; BP_DIAS 68; BP_DIAS 78
[2019-11-06] MEDS ORDERED: ATORVASTATIN 10 MG TABLET PO SCH (22:00)
[2019-11-07 03:01] VITALS: BP 165/88
[2019-11-07 04:38] VITALS: BP 147/90
--- NOTE | 2019-11-07 06:28 | NUR ---
RN NOTES ALERT AND ORIENTED X3, ROOM AIR, DENIES PAIN AT THIS TIME, VOIDING GOOD, CLEARED MEDICALLY FOR ADMISSION TO GPS, IVF TO DISCONTINUE IN AM.
--- NOTE | 2019-11-07 07:30 | NUR ---
RN Opening Received patient AO x 1, verbalize but confused. Able to responds all stimuli. Respiratory even and unlabored on room air, no distress observed. Skin is warm to touch, kept clean/dry, intact midline site site. keep bed in lock with elevated HOB for ensure airway and aspiration precaution, call light within reach, will continue to monitor.
[2019-11-07] MEDS: PANTOPRAZOLE 40 MG TABLET.DR PO SCH (07:52)
[2019-11-07 08:03] LABS: CALCIUM, SERUM 9.1 mg/dL (8.5-10.1); POTASSIUM 3.6 mmol/L (3.5-5.1)
[2019-11-07] MEDS: FLUOXETINE HCL 20 MG CAPSULE PO SCH (09:11)
[2019-11-07] MEDS: DOCUSATE SODIUM 100 MG CAPSULE PO SCH ×2 (09:11→17:03)
[2019-11-07] MEDS: HALOPERIDOL 5 MG TABLET PO SCH ×2 (09:11→17:03)
[2019-11-07] MEDS: TOPIRAMATE 100 MG TABLET PO SCH ×2 (09:11→17:04)
[2019-11-07] MEDS: APIXABAN 5 MG TABLET PO SCH ×2 (09:13→17:03)
[2019-11-07] MEDS: CLOTRIMAZOLE 1% 15 GM TUBE TP SCH ×2 (09:14→17:04)
[2019-11-07] MEDS: Z GUARD REMEDY 2 OZ OINT TP SCH (09:15)
--- NOTE | 2019-11-07 12:00 | NUR ---
Patient has been ordered d/c to psych unit ordered by Dr. Alarcon, clarified with Dr. Kim that pt ok to d/c to psych unit.
--- NOTE | 2019-11-07 13:32 | NUR ---
intake Cassandra informed about discharge order to GPS, she will inform crises team with new order to evaluate pt.
--- NOTE | 2019-11-07 18:30 | NUR ---
Wound picture taken on sacral and bruise on left orbital eye.area.
--- NOTE | 2019-11-07 18:42 | NUR ---
RN note Closing Patient resting in bed, no changes altered mental status, does no appears pain or distress. Respiratory even and unlabored on room air. Skin is warm to touch keep clean/dry, provided wound care on sacral, remain intact IV site. Keep bed in locked with elevated HOB and low position of bed. Pt held to d/c to psych unit and evaluated by crisis team. Call light within reach, will endorse weight shifter.
--- NOTE | 2019-11-07 19:36 | NUR ---
MS RN NOTES RECEIVED PATIENT RESTING IN BED, CALM, NO SIGNS OF ACUTE RESPIRATORY OR CARDIAC DISTRESS NOTED. BREATHING EVEN AND UNLABORED. SKIN IS WARM TO TOUCH. IV ACCESS ON HIS LEFT UPPER ARM MIDLINE INTACT AND PATENT. SAFETY MEASURES IN PLACE, CALL LIGHT WITHIN EASY REACH, BED IN LOW LOCKED POSITION. MAY DISCHARGE PATIENT TO [facility] GER[facility] UNIT EVALUATED BY CRISIS TEAM DURING AM SHIFT, OK BY DR. SARAHY MD AND DR. CLARENCE MD. WILL MONITOR PATIENT AT THIS TIME.
[2019-11-07 20:00] VITALS: BP 144/83
--- NOTE | 2019-11-07 20:10 | NUR ---
RN NOTES CALLED GEROPSYCH UNIT, SPOKE WITH CHARGE NURSE AIMEE OSMAN AND REPORT GIVEN TO AIMEE CABELLO.
--- NOTE | 2019-11-07 21:02 | NUR ---
RN NOTES FAXED FACE SHEET TO ADMITTING.
--- NOTE | 2019-11-07 22:23 | NUR ---
RN NOTES DISCHARGED TO [facility] IN ROOM 215. TRANSPORTED VIA BED, IN STABLE CONDITION. REPORT GIVEN TO AIMEE LAWLER.
== END 2019-11-07 19:00 | DRG 291 ==
LOC: ER 16:31 → TELE1 20:42 → MED 10-31 14:56
PROVIDERS: ADMIT Internal Medicine; ATTEND Internal Medicine
PROC: 05H633Z Insertion of Infusion Device into Left Subclavian Vein, Percutaneous Approach (ICD-10-PCS; principal; 2019-11-04)
PROC: B547ZZA Ultrasonography of Left Subclavian Vein, Guidance (ICD-10-PCS; 2019-11-04)
PROC: 05H633Z Insertion of Infusion Device into Left Subclavian Vein, Percutaneous Approach (ICD-10-PCS; 2019-11-05)
PROC: B547ZZA Ultrasonography of Left Subclavian Vein, Guidance (ICD-10-PCS; 2019-11-05)
DX: I11.0 Hypertensive heart disease with heart failure (principal); N17.0 Acute kidney failure with tubular necrosis; G93.40 Encephalopathy, unspecified; R79.89 Other specified abnormal findings of blood chemistry; Z79.01 Long term (current) use of anticoagulants; E11.9 Type 2 diabetes mellitus without complications; I50.33 Acute on chronic diastolic (congestive) heart failure; I48.0 Paroxysmal atrial fibrillation; F20.9 Schizophrenia, unspecified; F03.90 Unspecified dementia, unspecified severity, without behavioral disturbance, psychotic disturbance, mood disturbance, and anxiety; E78.5 Hyperlipidemia, unspecified; D64.9 Anemia, unspecified; Z87.891 Personal history of nicotine dependence; Z91.14 Patient's other noncompliance with medication regimen; N40.0 Benign prostatic hyperplasia without lower urinary tract symptoms; Z79.84 Long term (current) use of oral hypoglycemic drugs; R63.0 Anorexia; Z68.29 Body mass index [BMI] 29.0-29.9, adult; E66.9 Obesity, unspecified; I25.2 Old myocardial infarction; Z91.81 History of falling; Z79.82 Long term (current) use of aspirin
CPT/HCPCS: 36410; 36415; 36600; 70450-TC; 71045-TC; 80048-TC; 80053-TC; 80076-TC; 81000-TC; 82140-TC; 82550-TC; 82803-TC; 82962-TC; 83735-TC; 83880; 84100-TC; 84484-TC; 85025-TC; 85378-TC; 85730-TC; 87081-TC; 87086-TC; 93307-TC; 95819-TC; G0378; J3490; J7030; U0003-CS

== ENCOUNTER 2019-11-07 22:04 | Inpatient (IN) | payer MEDICARE, OTHER ==
[~2019-11-07] VITALS: Ht 167.6 cm; Wt 83.9 kg
[~2019-11-07 22:04] MED LIST: AMLO5TAB4 PO; APIX5TAB PO; ASPI-1169 PO; CARV12.52 PO; CLON0.5T4 PO; DOCU-141 PO; FLUO20CA42 PO; FURO-145 PO; GABA600T12 PO; HALO5TAB PO; METF-881 PO; MISO200T PO; OXYB-58 PO; PANT40TA2 PO; REPA2TAB10 PO; ROSU5TAB PO; TAMS-12 PO; TOPI100T38 PO; ZOLP5TAB8 PO
--- NOTE | 2019-11-07 22:15 | NUR ---
GPS-RESEARCH STUDY ASSISTANT NOTE: ADMITTED A 79-YR OLD, MALE, FROM [facility] INIT[facility] PATIENT CAME FROM [facility]. ADMITTED ON 5150 FOR GD. PER HOLD, PT WAS CONFUSED, RAMBLING WORDS NOT MAKING ANY SENSE. RESPONDING TO INTERNAL STIMULI. PATIENT UNABLE TO CARE FOR HIMSELF. UPON FACE TO FACE ASSESSMENT, PATIENT PRESENTS ALERT AND ORIENTED TO SELF ONLY, ANXIOUS, DISORGANIZED, CONFUSED, FORGETFUL. REORIENTATION PROVIDED. PT WAS ADVISED OF HIS HOLD. PT'S RIGHTS HANDBOOK AND A GUIDE TO PRESCRIPTION MEDICATIONS GIVEN. IN NO APPARENT DISTRESS NOTED. BELONGINGS WERE INVENTORIED AND CHECKED FOR CONTRABAND. PT. IS UNDER THE PSYCHIATRIC CARE OF DR. LIMA ORDERS OBTAINED, AND UNDER THE MEDICAL CARE OF DR. WEATHERS. SKIN BODY ASSESSMENT DONE. WOUND CONSULT ORDERED. PT DENIES PAIN/DISCOMFORT AT THIS TIME. BED LOCKED AND PLACED IN LOWEST POSITION TO MAINTAIN SAFETY. FALL PRECAUTIONS IMPLEMENTED. WILL CONTINUE TO MONITOR Q15 MIN ROUNDS FOR SAFETY AND BEHAVIOR.
[2019-11-07 22:20] VITALS: BP 141/64
[2019-11-08] MEDS ORDERED: ACETAMINOPHEN 325 MG TABLET PO PRN
[2019-11-08] MEDS ORDERED: LORAZEPAM 0.5 MG TABLET PO PRN
[2019-11-08] MEDS ORDERED: MAG HYDROX/AL HYDROX/SIMETH 30 ML UDC PO PRN
[2019-11-08] MEDS ORDERED: ZOLPIDEM TARTRATE 5 MG TABLET PO PRN
[2019-11-08] MEDS ORDERED: MAGNESIUM HYDROXIDE 30 ML UDC PO PRN
[2019-11-08] MEDS ORDERED: BLOOD SUGAR DIAGNOSTIC 1 EACH STRIP IN ONE (00:30)
[2019-11-08] MEDS ORDERED: DEXTROSE 50%-WATER 50 ML DISP.SYRIN IV PRN (01:30)
[2019-11-08] MEDS ORDERED: INSULIN REGULAR, HUMAN 100 UNIT/ML 3 ML VIAL SQ PRN (01:30)
--- NOTE | 2019-11-08 02:20 | NUR ---
GPS-RN NOTE: INSOMNIA PATIENT UNABLE TO SLEEP. ADMINISTERED AMBIEN 5MG PO ORDERED. WILL CONTINUE TO MONITOR FOR EFFECTIVENESS.
[2019-11-08] MEDS ORDERED: PANTOPRAZOLE 40 MG TABLET.DR PO SCH ×2 (07:30)
[2019-11-08 08:00] VITALS: BP 127/69
[2019-11-08 08:18] LABS: CALCIUM, SERUM 9.5 mg/dL (8.5-10.1); CREATININE 1.3 mg/dL (0.6-1.3); POTASSIUM 3.5 mmol/L (3.5-5.1)
[2019-11-08 08:20] LABS: BASOPHILS # (AUTO) 0.1 /CMM (0.0-0.2); BASOPHILS % (AUTO) 1.6 % (0.0-2.0); EOSINOPHILS % (AUTO) 0.6 % (0.0-6.0); HEMATOCRIT 39 % (39-51); HEMOGLOBIN 12.4 g/dL (13.5-17.5); LYMPHOCYTES # (AUTO) 1.3 /CMM (0.8-4.8); LYMPHOCYTES % (AUTO) 18.3 % (20.0-44.0); MEAN CORPUSCULAR HGB CONC 32 g/dl (31.0-36.0); MEAN CORPUSCULAR VOLUME 89 fL (80-96); MONOCYTES # (AUTO) 0.8 /CMM (0.1-1.30); MONOCYTES % (AUTO) 11.6 % (2.0-12.0); NEUTROPHILS # (AUTO) 4.9 /CMM (1.8-8.9); NEUTROPHILS % (AUTO) 67.9 % (43.0-81.0); PLATELET COUNT (AUTO) 376 /CMM (150-450); RED BLOOD CELL COUNT(AUTO) 4.33 MIL/uL (4.5-6.0); WHITE BLOOD COUNT (AUTO) 7.2 K/uL (4.3-11.0)
[2019-11-08] MEDS: BLOOD SUGAR DIAGNOSTIC 1 EACH STRIP IN SCH ×3 (08:45→16:32)
[2019-11-08] MEDS: TOPIRAMATE 100 MG TABLET PO SCH ×2 (08:46→16:07)
[2019-11-08] MEDS: APIXABAN 5 MG TABLET PO SCH ×2 (08:46→16:07)
[2019-11-08] MEDS: CLOTRIMAZOLE 1% 15 GM TUBE TP SCH ×2 (08:47→16:32)
[2019-11-08] MEDS ORDERED: FUROSEMIDE 20 MG TABLET PO SCH (09:00)
[2019-11-08] MEDS ORDERED: DOCUSATE SODIUM 100 MG CAPSULE PO SCH ×2 (09:00)
[2019-11-08] MEDS ORDERED: OXYBUTYNIN CHLORIDE ER 5 MG TAB PO SCH (09:00)
[2019-11-08] MEDS ORDERED: Z GUARD REMEDY 2 OZ OINT TP SCH (09:00)
[2019-11-08] MEDS ORDERED: REPAGLINIDE 2 MG TABLET PO SCH (09:00)
[2019-11-08] MEDS ORDERED: ASPIRIN 81 MG TAB.CHEW PO SCH (09:00)
[2019-11-08] MEDS ORDERED: CARVEDILOL 12.5 MG TABLET PO SCH ×2 (09:00→17:00)
[2019-11-08] MEDS ORDERED: APIXABAN 5 MG TABLET PO SCH (09:00)
[2019-11-08] MEDS ORDERED: GABAPENTIN 300 MG CAPSULE PO SCH (09:00)
[2019-11-08] MEDS ORDERED: METFORMIN XR 500 MG TAB.SR.24H PO SCH ×2 (09:00→17:00)
[2019-11-08] MEDS ORDERED: MISOPROSTOL 200 MCG TABLET PO SCH (09:00)
[2019-11-08] MEDS ORDERED: AMLODIPINE BESYLATE 5 MG TABLET PO SCH (09:00)
[2019-11-08] MEDS ORDERED: TOPIRAMATE 100 MG TABLET PO SCH (09:00)
--- NOTE | 2019-11-08 14:16 | NUR ---
GPS RN NOTE: TALK TO DR LIMA REGARDING PT MEDIATIONS AND CONSENT FORM. NEW T.O. ORDER PROZAC 40 MG PO DAILY, HALDOL 2.5 MG PO BID . KLONOPIN 0.5MG PO Q4 HR PRN, DC ATIVAN. ORDER PLACED AND CARED OUT WAITING FOR CONSENT.
[2019-11-08] MEDS ORDERED: clonazePAM 0.5 MG TABLET PO PRN (14:30)
[2019-11-08 14:55] VITALS: BP 124/81
--- NOTE | 2019-11-08 15:19 | NUR ---
GPS RN NOTE: MADE A CALL TO [facility]. [phone] REGARDING METFORMIN MEDICATION CLARIFICATION, LEFT MESSAGE, WAITING FOR CALL BACK.INDORSE TO INCOMING SHIFT RN
[2019-11-08 16:00] VITALS: BP 117/55
--- NOTE | 2019-11-08 16:18 | NUR ---
RT RT responded to LICENSED PHARMACIST, pt does not show any signs of SOB or respiratory distress. SpO2 is 96% on room air with normal breathing. RT cleared by rapid response nurse
--- NOTE | 2019-11-08 16:20 | NUR ---
GPS RN NOTE:RAPID RESPONSE PT IN THE ROOM RESTING IN BED ALERT, AWAKE EYES OPEN PT A/O X2, TALKING ANSWERING QUESTIONS, VS T 98,R 17, BP 117/55 HEART RATE VERY HIGH 159,CALLED RAPID RESPONSE, AT 1620 BP 119/76 P 159,BS 126 . ORDER ECG STAT CALL .
--- NOTE | 2019-11-08 16:40 | NUR ---
GPS RN NOTE: DR LIMA NOTIFIED OF PT CONDITION , RAPID RESPONSE, REMIND IT TO FAX CONSENT FORM FOR PSYCH MEDICATIONS.
--- NOTE | 2019-11-08 16:55 | NUR ---
GPS RN NOTE: DR HAMILTON CALL BACK , REPORT GIVEN VSS, CONDITION, RAPID RESPONSE, STAT EKG RESULT. MEDICATIONS ADMINISTRATION .PER DR DELA CRUZ MONITORING FOR THREE HOURS RECHECK VSS , CALL BACK FOR REPORT. WILL CONTINUE MONITORING INDORSE TO INCOMING SHIFT RN.
[2019-11-08 17:04] VITALS: BP 119/76
[2019-11-08 17:45] VITALS: BP 109/66
[2019-11-08] MEDS ORDERED: HALOPERIDOL 5 MG TABLET PO SCH (19:00)
--- NOTE | 2019-11-08 19:10 | NUR ---
gps rn note : PER DR HAMILTON TRANSFER PT TO TELE
[2019-11-08 19:30] VITALS: BP 71/43
--- NOTE | 2019-11-08 19:30 | NUR ---
GPS-RN NOTE: RECEIVED PATIENT IN BED AWAKE AND ALERT. NO S/SX OF ACUTE DISTRESS NOTED. 1899 - RECEIVED A CALL FROM DR. WEATHERS, REPORTED PATIENT'S CURRENT CONDITION BP 71/43, HEART RATE 157, O2 SATURATION STABLE AND MAG 1.4. DR. WEATHERS ORDERED TO TRANSFER PT. TO TELEMETRY AND CONTINUE ALL MEDS. 1901 - CALLED OUTSIDE PARTS SALES LIVIA NOTIFIED OF PT'S TRANSFER. 1904 - PLACED A CALL TO DR. LIMA, NOTIFIED PT'S TRANSFER PER DR. WEATHERS'S ORDER. DR. LIMA ORDERED TO CONTINUE HOLD 5150 AND DISCONTINUE ALL PSYCHOTROPICS MEDICATIONS. 1929 - CALLED RAPID RESPONSE TEAM. 1932 - [employer]ANT ATTENDANT TEAM RESPONDED. ATTEMPTED TO START IV X2. UNSUCCESSFUL DUE TO PATIENT'S HARD STICK VEIN. CLOSELY MONITORED PATIENT VITAL SIGNS IMPROVED BP 111/95 HR 78 02 SATURATION @95%. NURSE OUTS[employer]S SALES CALLED AND GAVE ROOM NUMBER PATIENT TO BE PLACED IN ROOM 309-1 2009 - PATIENT LEFT IN THE UNIT IN STABLE CONDITION, BELONGINGS SENT. BEDSIDE REPORT GIVEN TO AIMEE HELLER. 2029- NOTIFIED PT'S DAUGHTER ZAKIA GREENWOOD REGARDING PT'S TRANSFER TO TELEMETRY UNIT.
[2019-11-08] MEDS ORDERED: Medication Not On Formulary EA (Rosuvastatin Calcium (Crestor) 5 MG) PO SCH (22:00)
[2019-11-08] MEDS ORDERED: TAMSULOSIN 0.4 MG CAP.SR.24H PO SCH ×2 (22:00)
[2019-11-09] MEDS ORDERED: FLUOXETINE HCL 20 MG/5 ML UDC PO SCH (09:00)
== END 2019-11-08 20:22 | disposition short-term general hospital (02) | DRG 885 ==
LOC: GPS 22:04
PROVIDERS: ADMIT Psychiatry & Neurology Psychiatry; ATTEND Psychiatry & Neurology Psychiatry
DX: F20.0 Paranoid schizophrenia (principal); I11.0 Hypertensive heart disease with heart failure; F03.91 Unspecified dementia, unspecified severity, with behavioral disturbance; I48.0 Paroxysmal atrial fibrillation; E11.9 Type 2 diabetes mellitus without complications; F32.9 Major depressive disorder, single episode, unspecified; I50.9 Heart failure, unspecified; Z79.01 Long term (current) use of anticoagulants; Z91.81 History of falling; E78.5 Hyperlipidemia, unspecified; Z73.6 Limitation of activities due to disability; N40.0 Benign prostatic hyperplasia without lower urinary tract symptoms; E66.9 Obesity, unspecified; Z68.29 Body mass index [BMI] 29.0-29.9, adult
CPT/HCPCS: 36415; 80048-TC; 80061-TC; 82962-TC; 83735-TC; 85025-TC; 97530-TC; J1815

== ENCOUNTER 2019-11-08 20:29 | Inpatient (IN) | payer MEDICARE, OTHER ==
[~2019-11-08] VITALS: Ht 170.2 cm; Wt 79.8 kg
[2019-11-08] MEDS ORDERED: POTASSIUM CHLORIDE 20 MEQ TAB.PRT.SR PO ONE (21:00)
[2019-11-08] MEDS ORDERED: AMIODARONE 150 MG in IV D5W 100 ML IV ONE (21:00)
[2019-11-08] MEDS ORDERED: ZOLPIDEM TARTRATE 5 MG TABLET PO PRN (21:00)
[2019-11-08] MEDS: Magnesium 1GM/D5W 100ML PREMIX PIGGYBACK IV SCH ×3 (21:52→23:23)
[2019-11-08] MEDS: TAMSULOSIN 0.4 MG CAP.SR.24H PO SCH (22:01)
[2019-11-08] MEDS: METOPROLOL TARTRATE 50 MG TABLET PO SCH (22:12)
[2019-11-08] MEDS ORDERED: AMIODARONE 150 MG/3 ML VIAL IV ONE (22:20)
[2019-11-08 22:40] VITALS: BP 68/39
[2019-11-08 23:20] VITALS: BP 110/69
[2019-11-09] VITALS: BP 104/56
[2019-11-09] MEDS: Magnesium 1GM/D5W 100ML PREMIX PIGGYBACK IV SCH (00:24)
[2019-11-09 00:29] VITALS: BP 104/52
--- NOTE | 2019-11-09 00:58 | NUR ---
RN NOTE: PATIENT RECEIVED AMIODARONE BOLUS AND PATIENT TELE READING SR IN 70, CALLED DR. MARTIN TO CLARIFY IF THERE IS STILL A NEED FOR AMIODARONE DRIP. RECEIVED ORDERS TO DISCONTINUE AMIODARONE DRIP AT THIS TIME. ORDER NOTED AND CARRIED OUT. INFORMED PRIMARY NURSE CELWYN. WILL CONTINUE TO MONITOR.
[2019-11-09] MEDS ORDERED: AMIODARONE 450 MG in IV D5W 250 ML IV PRN (01:00)
[2019-11-09 04:00] VITALS: BP 92/46
--- NOTE | 2019-11-09 04:19 | NUR ---
RN notes Admitted a 79 yr old male from [facility] with no apparent distress, breathing even and unlabored, room air well tolerated. Alert with confusion. On 5150 hold, sitter at bedside. No physical manifestation of pain or discomfort. Vital signs taken, WNL. Started amiodarone bolus at 660mls/hr for 150mg. No side effects noted. Magnesium 4 bags of 1g administered for low potassium level, no adverse effect noted. Discontinue order for Amiodarone drip noted. Needs attended, kept clean and dry. Will continue to monitor and endorsed to next shift.
[2019-11-09 06:47] LABS: BASOPHILS # (AUTO) 0.1 /CMM (0.0-0.2); BASOPHILS % (AUTO) 1.3 % (0.0-2.0); EOSINOPHILS % (AUTO) 1.4 % (0.0-6.0); HEMATOCRIT 38 % (39-51); HEMOGLOBIN 12.4 g/dL (13.5-17.5); LYMPHOCYTES # (AUTO) 1.6 /CMM (0.8-4.8); LYMPHOCYTES % (AUTO) 19.6 % (20.0-44.0); MEAN CORPUSCULAR HGB CONC 33 g/dl (31.0-36.0); MEAN CORPUSCULAR VOLUME 90 fL (80-96); MONOCYTES % (AUTO) 11.4 % (2.0-12.0); NEUTROPHILS # (AUTO) 5.5 /CMM (1.8-8.9); NEUTROPHILS % (AUTO) 66.3 % (43.0-81.0); PLATELET COUNT (AUTO) 333 /CMM (150-450); RED BLOOD CELL COUNT(AUTO) 4.25 MIL/uL (4.5-6.0); WHITE BLOOD COUNT (AUTO) 8.4 K/uL (4.3-11.0)
--- NOTE | 2019-11-09 07:30 | NUR ---
TELE/RN NOTE THE PATIENT IS RECEIVED IN BED. SITTER AT THE BEDSIDE. PATIENT IS ALERT AND ORIENTED X2. DENIES PAIN. RECEIVING OXYGEN AT 2L/MIN VIA NASAL CANNULA AND DENIES SOB. JULIANN MIDLINE G 18 AND LFA G 20 BOTH PATENT AND SALINE LOCKED. BED LOW AND LOCKED. SIDE RAILS UP X3. CALL LIGHT WITHIN REACH. WILL CONTINUE TO MONITOR.
[2019-11-09 08:00] VITALS: BP 131/63
[2019-11-09 08:07] LABS: CALCIUM, SERUM 9.7 mg/dL (8.5-10.1); CARBON DIOXIDE 21 mmol/L (21-32); CHLORIDE 105 mmol/L (98-107); CREATININE 1.4 mg/dL (0.6-1.3); GLUCOSE 159 mg/dL (74-106); POTASSIUM 3.8 mmol/L (3.5-5.1); SODIUM SERUM 137 mmol/L (136-145); UREA NITROGEN, BLOOD 25 mg/dL (7-18)
--- NOTE | 2019-11-09 09:01 | NUR ---
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 PT IS INCONTINENT OF URINE AND STOOL. RECOMMENDATIONS MADE FOR SKIN PROTECTION AND SKIN CARE. DISCUSSED WITH NURSING STAFF. WILL SEE PRN. BANEGAS IN AGREEMENT WITH PLAN OF CARE. PT IS ON [facility] LOW AIRLOSS BED. Addendum: 11/09/19 at 0903 by MADI PIRES WNDNU Amended: Links added.
[2019-11-09] MEDS: TOPIRAMATE 100 MG TABLET PO SCH ×2 (09:17→21:26)
[2019-11-09] MEDS: APIXABAN 5 MG TABLET PO SCH ×2 (09:17→17:06)
[2019-11-09] MEDS: METFORMIN 500 MG TABLET PO SCH ×2 (09:17→17:05)
[2019-11-09] MEDS: METOPROLOL TARTRATE 50 MG TABLET PO SCH ×2 (09:18→21:27)
--- NOTE | 2019-11-09 16:12 | NUR ---
RN NOTE DR LIMA DID FACETIME WITH THE PATIENT. RECEIVED NEW ORDER FROM DR LIMA TO DISCONTINUE THE HOLD. THE ORDER NOTED AND CARRIED OUT.
[2019-11-09] MEDS: CLOTRIMAZOLE 1% 15 GM TUBE TP SCH ×3 (17:07→17:46)
--- NOTE | 2019-11-09 18:06 | NUR ---
MS/RN NOTE THE PATIENT IS ALERT AND ORIENTED X2. ABLE TO MAKE NEEDS KNOWN VERBALLY. DENIES SOB. RESPIRATION REGULAR AND UNLABORED. OXYGEN SATURATION IS ROOM AIRIS AT 95%. THE PATIENT IS IN NO APPARENT DISTRESS. JULIANN MIDLINE G 18 PATENT AND SALINE LOCKED. LFA G 20 PATENT AND SALINE LOCKED. BED LOW AND LOCKED. SIDE RAILS UP X3. CALL LIGHT WITHIN REACH. WILL ENDORSE TO SCHOOL COORDINATOR.
--- NOTE | 2019-11-09 19:30 | NUR ---
MS/RN NOTE RECEIVED THE PATIENT IN BED, ALERT AND ORIENTED X 2. PATIENT IS ABLE TO MAKE NEEDS KNOWN VERBALLY. NO SIGNS OF RESPIRATORY DISTRESS OR SOB. RESPIRATION REGULAR AND UNLABORED. PATIENT IS TOLERATING ROOM AIR WELL. THE PATIENT IS IN NO APPARENT DISTRESS. RIGHT UPPER ARM MIDLINE G 18 PATENT AND SALINE LOCKED. LEFT FOREARM G 20 PATENT AND SALINE LOCKED. SAFETY MEASURES ARE IN PLACE, BED IS LOCKED AND PLACED IN THE LOW POSITION WITH SIDE RAILS UP X 3. CALL LIGHT IS WITHIN REACH. WILL CONTINUE TO MONITOR PATIENT DURING SHIFT.
[2019-11-09 20:45] VITALS: BP 120/56
[2019-11-09] MEDS: TAMSULOSIN 0.4 MG CAP.SR.24H PO SCH (21:26)
--- NOTE | 2019-11-10 06:15 | NUR ---
MS/RN CLOSING NOTE PATIENT IN BED RESTING, ALERT AND ORIENTED X 2. PATIENT IS ABLE TO MAKE NEEDS KNOWN VERBALLY. NO SIGNS OF RESPIRATORY DISTRESS OR SOB. RESPIRATION REGULAR AND UNLABORED. PATIENT IS TOLERATING ROOM AIR WELL. THE PATIENT IS IN NO APPARENT DISTRESS. RIGHT UPPER ARM MIDLINE G 18 PATENT AND SALINE LOCKED. ALL OF PATIENTS NEEDS HAVE BEEN MET DURING SHIFT. SAFETY MEASURES ARE IN PLACE, BED IS LOCKED AND PLACED IN THE LOW POSITION WITH SIDE RAILS UP X 3. CALL LIGHT IS WITHIN REACH. WILL ENDORSE CARE TO DAY SHIFT.
--- NOTE | 2019-11-10 07:00 | NUR ---
WHEELMAN OPENING NOTES Received patient alert and verbally responsive x 2. Respiration is even and easy with no shortness of breath. Pt able to tolerate room air with no discomfort. Both side rails up for safety precaution. No complain of pain or discomfort at this time.
[2019-11-10 08:00] VITALS: BP 117/54
[2019-11-10] MEDS: METOPROLOL TARTRATE 50 MG TABLET PO SCH (09:00)
[2019-11-10] MEDS: METFORMIN 500 MG TABLET PO SCH ×2 (09:48→17:03)
[2019-11-10] MEDS: TOPIRAMATE 100 MG TABLET PO SCH (09:48)
[2019-11-10] MEDS: APIXABAN 5 MG TABLET PO SCH ×2 (09:49→17:02)
[2019-11-10] MEDS: CLOTRIMAZOLE 1% 15 GM TUBE TP SCH ×2 (10:02→17:11)
--- NOTE | 2019-11-10 14:00 | NUR ---
RN MS NOTES RECEIVED ORDER FROM DR. LIMA TO REINSTATE HOLD.
[2019-11-10 16:32] VITALS: BP 117/54
--- NOTE | 2019-11-10 16:32 | NUR ---
RN MS NOTES PT FOR D/C TO [facility], PER DR. WEATHERS, CONTINUE IN-PATIENT MEDS, PHARMACY INFORMED.
--- NOTE | 2019-11-10 17:21 | NUR ---
RN MS NOTES REPORT GIVEN TO SALVATORE YU OF [facility].
--- NOTE | 2019-11-10 18:10 | NUR ---
RN MS NOTES PT INFORMED OF DISCHARGE ORDER, DISCHARGE AND MEDICATION INSTRUCTIONS PROVIDED TO PT, VERBALIZED UNDERSTANDING, TRANSPORTED PT TO [facility] UNIT VIA BED, PT RECEIVED BY [facility] STAFF.
[2019-11-11] MEDS ORDERED: AMIODARONE HCL 200 MG TABLET PO SCH (09:00)
== END 2019-11-10 17:12 | DRG 309 ==
LOC: TELE 20:29 → MED 11-09 10:25
PROVIDERS: ADMIT Internal Medicine; ATTEND Internal Medicine
PROC: 05H533Z Insertion of Infusion Device into Right Subclavian Vein, Percutaneous Approach (ICD-10-PCS; principal; 2019-11-08)
PROC: B546ZZA Ultrasonography of Right Subclavian Vein, Guidance (ICD-10-PCS; 2019-11-08)
DX: I48.0 Paroxysmal atrial fibrillation (principal); N17.9 Acute kidney failure, unspecified; E11.9 Type 2 diabetes mellitus without complications; F29 Unspecified psychosis not due to a substance or known physiological condition; F20.9 Schizophrenia, unspecified; I10 Essential (primary) hypertension; Z87.891 Personal history of nicotine dependence; E83.42 Hypomagnesemia; I48.92 Unspecified atrial flutter; N40.0 Benign prostatic hyperplasia without lower urinary tract symptoms; E66.9 Obesity, unspecified; Z68.27 Body mass index [BMI] 27.0-27.9, adult; I95.9 Hypotension, unspecified
CPT/HCPCS: 36410; 36415; 80048-TC; 85025-TC; G0378; J0282; J3475; J7050; J7060

== ENCOUNTER 2019-11-10 19:44 | Inpatient (IN) | payer MEDICARE, OTHER ==
[~2019-11-10] VITALS: Ht 167.6 cm; Wt 83.0 kg
--- NOTE | 2019-11-10 19:05 | NUR ---
GPS-DATA SECURITY ANALYST NOTE: ADMITTED A 79-YR OLD, MALE, FROM [facility] INITIALLY PATIENT CAME FROM [facility]. ADMITTED ON 5250 FOR GD. PER HOLD, PT WAS CONFUSED, RAMBLING WORDS NOT MAKING ANY SENSE. RESPONDING TO INTERNAL STIMULI. PATIENT UNABLE TO CARE FOR HIMSELF. UPON FACE TO FACE ASSESSMENT, PATIENT PRESENTS ALERT AND ORIENTED TO SELF ONLY, ANXIOUS, RESTLESS, DISORGANIZED, CONFUSED, DISORIENTED. REORIENTATION PROVIDED. PT WAS ADVISED OF HIS HOLD. PT'S RIGHTS HANDBOOK AND A GUIDE TO PRESCRIPTION MEDICATIONS GIVEN. IN NO APPARENT DISTRESS NOTED. BELONGINGS WERE INVENTORIED AND CHECKED FOR CONTRABAND. PT. IS UNDER THE PSYCHIATRIC CARE OF DR. LIMA ORDERS OBTAINED, AND UNDER THE MEDICAL CARE OF DR. WEATHERS. SKIN BODY ASSESSMENT DONE. WOUND CONSULT ORDERED. TURNED AND REPOSITIONED Q2HRS AND NEEDED. BED LOCKED AND PLACED IN LOWEST POSITION TO MAINTAIN SAFETY. FALL PRECAUTIONS IMPLEMENTED. WILL CONTINUE TO MONITOR Q15 MIN ROUNDS FOR SAFETY AND BEHAVIOR. Addendum: 11/11/19 at 0359 by NURIS MCKINNEY RN PER HOLD PATIENT IS VERY DISORGANIZED WITH PSYCHOSIS AND POOR JUDGEMENT.
[2019-11-10 19:15] VITALS: BP 153/74
[~2019-11-10 19:44] MED LIST changes: -CLON0.5T4 PO; -FLUO20CA42 PO; -HALO5TAB PO; -ZOLP5TAB8 PO
[2019-11-10 19:56] VITALS: BP 153/74
[2019-11-10] MEDS ORDERED: ACETAMINOPHEN 325 MG TABLET PO PRN (20:00)
[2019-11-10] MEDS ORDERED: MAGNESIUM HYDROXIDE 30 ML UDC PO PRN (20:00)
[2019-11-10] MEDS ORDERED: TEMAZEPAM 7.5 MG CAPSULE PO PRN (20:00)
[2019-11-10] MEDS ORDERED: BLOOD SUGAR DIAGNOSTIC 1 EACH STRIP IN ONE (20:00)
[2019-11-10] MEDS ORDERED: MAG HYDROX/AL HYDROX/SIMETH 30 ML UDC PO PRN (20:00)
[2019-11-10] MEDS: TAMSULOSIN 0.4 MG CAP.SR.24H PO SCH (21:31)
[2019-11-10 21:35] VITALS: BP 142/61
[2019-11-11] MEDS: LORAZEPAM 0.5 MG TABLET PO PRN (03:09)
--- NOTE | 2019-11-11 03:13 | NUR ---
GPS-RN NOTE: ANXIETY PATIENT IS ANXIOUS AND RESTLESS. ADMINISTERED ATIVAN 0.5MG PO ORDERED. WILL CONTINUE TO MONITOR FOR SAFETY AND BEHAVIOR.
[2019-11-11 07:26] LABS: CALCIUM, SERUM 9.4 mg/dL (8.5-10.1); CREATININE 1.3 mg/dL (0.6-1.3); POTASSIUM 3.7 mmol/L (3.5-5.1)
[2019-11-11 08:00] VITALS: BP 132/60
[2019-11-11] MEDS: AMIODARONE HCL 200 MG TABLET PO SCH (08:57)
[2019-11-11] MEDS: METFORMIN 500 MG TABLET PO SCH ×2 (08:58→17:13)
[2019-11-11] MEDS: APIXABAN 5 MG TABLET PO SCH ×2 (08:58→17:14)
--- NOTE | 2019-11-11 10:35 | NUR ---
FACILITY CONTACT: LEILA contacted [facility] [address] [facility] [address] and spoke with Hector, retirement administrator who stated he was not sure if pt is able to return back to the facility and needs to speak with the b2b account executive to confirm. He states that pt has been a resident at that facility since 09/26/2004 and has been non-medication compliant. LEILA requested a call back to confirm readmission.
--- NOTE | 2019-11-11 10:49 | NUR ---
FAMILY CONTACT: SW contacted pts daughter Brandi ([phone]) for collateral information and treatment/discharge planning. SW informed daughter that [facility] may not accept pt back and daughter understood. Daughter states that pt has been diagnosed with Schizophrenia since his mid 30's and states that pt was COVID positive from June-August and was on a ventilator. She states that pts mental health declined due to abelino COVID and up until then pt was a high functioning schizophrenic and was independent with ADL's. Daughter states that pts current cognitive decline is not pts baseline.
[2019-11-11] MEDS: CLOTRIMAZOLE 1% 15 GM TUBE TP SCH ×2 (11:02→17:14)
--- NOTE | 2019-11-11 12:08 | NUR ---
GPS/RN-NOTES SEEN THE PATIENT VIA TELEMEDICINE TODAY, MADE AWARE OF PATIENT LABS RESULTS TODAY WITH T.O ORDER OF MAG OXIDE 400MG P.O DAILY AND BMP IN 48 HRS. NOTED AND CARRIED OUT.
--- NOTE | 2019-11-11 12:35 | NUR ---
INITIAL DISCHARGE PLAN: Pt may need SNF placement. LEILA contacted [facility] [address] [facility] [address] and spoke with Hector, branch administrator who stated he was not sure if pt is able to return back to the facility and needs to speak with the product marketing executive to confirm. LEILA requested a call back to confirm readmission. LEILA will help form a safe and proper discharge in collaboration with .
--- NOTE | 2019-11-11 13:13 | NUR ---
FACILITY CONTACT: SW received a call from Hector, cyber security administrator at [facility] [place] [id number] [facility], [facility] [address] who stated pt will not be accepted back and will need to be placed at a SNF.
[2019-11-11] MEDS: GABAPENTIN 300 MG CAPSULE PO SCH ×2 (13:36→17:13)
[2019-11-11] MEDS: Z GUARD REMEDY 4 OZ OINT TP SCH ×2 (13:46→21:17)
[2019-11-11 16:00] VITALS: BP 100/54
--- NOTE | 2019-11-11 16:15 | NUR ---
GPS/RN-NOTES EKG RESULTS WAS FAXED TO THE PHARMACY AND DR. WEATHERS OFFICE C/O DENISSE ( OFFICE STAFF),STATED SHE WILL TAKE PICTURE AND SEND DR. WEATHERS.
[2019-11-11] MEDS: HALOPERIDOL 5 MG TABLET PO SCH (17:21)
[2019-11-11 19:52] VITALS: BP 112/67
[2019-11-11] MEDS: TAMSULOSIN 0.4 MG CAP.SR.24H PO SCH (21:22)
[2019-11-12 08:00] VITALS: BP 141/74
[2019-11-12] MEDS: MAGNESIUM OXIDE 400 MG TABLET PO SCH (08:45)
[2019-11-12] MEDS: GABAPENTIN 300 MG CAPSULE PO SCH ×3 (08:45→16:59)
[2019-11-12] MEDS: HALOPERIDOL 5 MG TABLET PO SCH ×2 (08:45→16:59)
[2019-11-12] MEDS: METFORMIN 500 MG TABLET PO SCH ×2 (08:45→16:59)
[2019-11-12] MEDS: APIXABAN 5 MG TABLET PO SCH ×2 (08:47→17:01)
[2019-11-12] MEDS: AMIODARONE HCL 200 MG TABLET PO SCH (08:48)
[2019-11-12] MEDS: Z GUARD REMEDY 4 OZ OINT TP SCH ×2 (08:55→21:29)
[2019-11-12] MEDS: CLOTRIMAZOLE 1% 15 GM TUBE TP SCH ×2 (08:55→17:10)
--- NOTE | 2019-11-12 10:18 | NUR ---
SNF REFERRAL: [facility] Address: [address], [place] [address] for review.
[2019-11-12 16:00] VITALS: BP 140/84
[2019-11-12 20:07] VITALS: BP 125/55
[2019-11-12] MEDS: TAMSULOSIN 0.4 MG CAP.SR.24H PO SCH (21:28)
--- NOTE | 2019-11-13 06:40 | NUR ---
GPS RN NOTE: BLOOD DRAW REFUSAL PT REFUSED BLOOD DRAW THIS MORNING, WILL PASS IT ON TO AM SHIFT. EXPLAINED TO THE PT 3X ABOUT THE BENEFITS OF ALLOWING THE BLOOD DRAW. LAB SAID WILL TRY AGAIN LATER ON DURING THE DAY. WILL CONTINUE TO MONITOR Q15 MIN FOR SAFETY AND BEHAVIOR
[2019-11-13 08:00] VITALS: BP 126/60
[2019-11-13] MEDS: PANTOPRAZOLE 40 MG TABLET.DR PO SCH (08:32)
[2019-11-13] MEDS: METFORMIN 500 MG TABLET PO SCH ×2 (08:32→16:41)
[2019-11-13] MEDS: HALOPERIDOL 5 MG TABLET PO SCH ×2 (08:32→16:41)
[2019-11-13] MEDS: MAGNESIUM OXIDE 400 MG TABLET PO SCH (08:32)
[2019-11-13] MEDS: AMIODARONE HCL 200 MG TABLET PO SCH (08:32)
[2019-11-13] MEDS: GABAPENTIN 300 MG CAPSULE PO SCH ×3 (08:32→16:41)
[2019-11-13] MEDS: APIXABAN 5 MG TABLET PO SCH ×2 (08:33→16:42)
[2019-11-13] MEDS: CLOTRIMAZOLE 1% 15 GM TUBE TP SCH ×2 (08:39→17:08)
[2019-11-13] MEDS: Z GUARD REMEDY 4 OZ OINT TP SCH ×2 (08:39→21:17)
--- NOTE | 2019-11-13 09:20 | NUR ---
SNF Contact: SW called Helga from [facility] and inquired about the pts inquiry. She stated that she will call the SW back in 15 minutes regarding a discharge.
[2019-11-13 09:33] LABS: CALCIUM, SERUM 9.6 mg/dL (8.5-10.1); CARBON DIOXIDE 26 mmol/L (21-32); CHLORIDE 102 mmol/L (98-107); CREATININE 1.4 mg/dL (0.6-1.3); GLUCOSE 248 mg/dL (74-106); POTASSIUM 4.4 mmol/L (3.5-5.1); SODIUM SERUM 137 mmol/L (136-145); UREA NITROGEN, BLOOD 34 mg/dL (7-18)
--- NOTE | 2019-11-13 10:18 | NUR ---
SNF Contact: Helga , Admissions from [facility], called the SW and stated that the pt was accepted to their facility and will need a new COVID test upon arrival.
--- NOTE | 2019-11-13 11:11 | NUR ---
WOUND CARE FOLLOW UP: PT SEEN FOR RE-EVALUATION OF RASH AND GLUTEAL CREASE INCONTINENCE ASSOCIATED SKIN DAMAGE, PRESENT ON ADMISSION. RASH IS IMPROVING BUT PT CONTINUES TO BE INCONTINENT OF URINE AND STOOL. RECOMMENDATIONS MADE FOR SKIN PROTECTION. SKIN TO BE KEPT CLEAN AND DRY. DISCUSSED WITH NURSING STAFF. MD IN AGREEMENT WITH PLAN OF CARE. Addendum: 11/13/19 at 1112 by MADI PIRES WNDNU Amended: Links added.
--- NOTE | 2019-11-13 15:08 | NUR ---
INDIVIDUAL INTERVENTION: SW encouraged pt to engage in conversation. Pt appeared with elated mood and blunted affect. Pt did not engage in conversation and is only alert to self.
[2019-11-13 16:07] VITALS: BP 123/63
[2019-11-13] MEDS ORDERED: APIXABAN 5 MG TABLET PO SCH (17:00)
[2019-11-13] MEDS ORDERED: METFORMIN XR 500 MG TAB.SR.24H PO SCH (17:00)
[2019-11-13 20:11] VITALS: BP 140/61
--- NOTE | 2019-11-13 20:23 | NUR ---
[facility] RN NOTE: LABS AFTER REVIEWING PTS LABS WAS AWARE THAT BUN CAME BACK AT 34, NOTIFIED OUTPATIENT SURGERY RN PHYSICIAN FOR DR. WEATHERS, IT WAS DR. ELLI DEVRIES, ORDERED A BMP FOR TOMORROW MORNING PER REQUEST AND STATED TO ENCOURAGE FLUIDS. WILL FOLLOW THROUGH WITH ORDERS AND CONTINUE MONITORING Q15MIN FOR SAFETY AND BEHAVIOR.
[2019-11-13] MEDS: TAMSULOSIN 0.4 MG CAP.SR.24H PO SCH (21:14)
[2019-11-13] MEDS ORDERED: TAMSULOSIN 0.4 MG CAP.SR.24H PO SCH (22:00)
[2019-11-14] MEDS ORDERED: PANTOPRAZOLE 40 MG TABLET.DR PO SCH (07:30)
[2019-11-14 08:00] VITALS: BP 153/75
[2019-11-14] MEDS: PANTOPRAZOLE 40 MG TABLET.DR PO SCH (08:09)
[2019-11-14] MEDS: METFORMIN 500 MG TABLET PO SCH ×2 (08:57→16:49)
[2019-11-14] MEDS: GABAPENTIN 300 MG CAPSULE PO SCH ×3 (08:57→16:49)
[2019-11-14] MEDS: MAGNESIUM OXIDE 400 MG TABLET PO SCH (08:57)
[2019-11-14] MEDS: AMIODARONE HCL 200 MG TABLET PO SCH (08:57)
[2019-11-14] MEDS: HALOPERIDOL 5 MG TABLET PO SCH ×2 (08:57→16:48)
[2019-11-14] MEDS: APIXABAN 5 MG TABLET PO SCH ×2 (08:58→16:48)
[2019-11-14] MEDS: LORAZEPAM 0.5 MG TABLET PO PRN (09:09)
--- NOTE | 2019-11-14 09:09 | NUR ---
RN NOTE: ANXIETY PT EXHIBITING AGITATION AND ANXIETY WHILE LYING IN BED. INCREASED RESPIRATIONS. DENIES SOB. SPO2 STABLE4. MEDICATED WITH ATIVAN PO PRN.
[2019-11-14] MEDS: Z GUARD REMEDY 4 OZ OINT TP SCH ×2 (09:23→21:50)
[2019-11-14] MEDS: CLOTRIMAZOLE 1% 15 GM TUBE TP SCH ×2 (09:23→17:42)
[2019-11-14 09:41] LABS: CALCIUM, SERUM 9.7 mg/dL (8.5-10.1); CREATININE 1.2 mg/dL (0.6-1.3); POTASSIUM 3.6 mmol/L (3.5-5.1)
[2019-11-14 16:00] VITALS: BP 112/68
[2019-11-14 20:10] VITALS: BP 140/69
[2019-11-14] MEDS: TAMSULOSIN 0.4 MG CAP.SR.24H PO SCH (21:51)
--- NOTE | 2019-11-15 06:58 | NUR ---
[facility] RN CLOSING NOTE: PT LAYING COMFORTABLY IN BED, SLEEPING INTERMITTENTLY, RESPIRATION EVEN AND UNLABORED WITH EQUAL RISE AND FALL OF THE CHEST. NO S/S OF DISTRESS. DIAPER CHANGED AND PT REPOSITIONED FOR COMFORT AND TO RELIEVE MUSCLE STIFFNESS. ALL CARE NEEDS MET. WILL CONTINUE TO MONITOR AND ENDORSE TO AM SHIFT.
[2019-11-15 08:00] VITALS: BP 134/63
[2019-11-15] MEDS: PANTOPRAZOLE 40 MG TABLET.DR PO SCH (08:16)
[2019-11-15] MEDS: AMIODARONE HCL 200 MG TABLET PO SCH (08:38)
[2019-11-15] MEDS: METFORMIN 500 MG TABLET PO SCH ×2 (08:38→16:49)
[2019-11-15] MEDS: HALOPERIDOL 5 MG TABLET PO SCH ×2 (08:38→16:49)
[2019-11-15] MEDS: MAGNESIUM OXIDE 400 MG TABLET PO SCH (08:38)
[2019-11-15] MEDS: APIXABAN 5 MG TABLET PO SCH ×2 (08:39→16:53)
[2019-11-15] MEDS: POTASSIUM CHLORIDE 20 MEQ TAB.PRT.SR PO SCH (08:39)
[2019-11-15] MEDS: GABAPENTIN 300 MG CAPSULE PO SCH ×3 (08:39→16:49)
[2019-11-15] MEDS: CLOTRIMAZOLE 1% 15 GM TUBE TP SCH ×2 (09:37→18:02)
[2019-11-15] MEDS: Z GUARD REMEDY 4 OZ OINT TP SCH ×2 (09:37→21:40)
[2019-11-15] MEDS: LORAZEPAM 0.5 MG TABLET PO PRN (13:16)
--- NOTE | 2019-11-15 13:16 | NUR ---
RN NOTE: ANXIETY PT EXHIBITING ANXIETY AND AGITATION. MEDICATED WITH ATIVAN PO PRN
[2019-11-15 16:00] VITALS: BP 161/78
[2019-11-15 20:02] VITALS: BP 134/64
[2019-11-15] MEDS: TAMSULOSIN 0.4 MG CAP.SR.24H PO SCH (21:40)
[2019-11-16 08:00] VITALS: BP 148/77
[2019-11-16] MEDS: POTASSIUM CHLORIDE 20 MEQ TAB.PRT.SR PO SCH (09:13)
[2019-11-16] MEDS: HALOPERIDOL 5 MG TABLET PO SCH ×2 (09:13→16:35)
[2019-11-16] MEDS: METFORMIN 500 MG TABLET PO SCH ×2 (09:13→16:35)
[2019-11-16] MEDS: PANTOPRAZOLE 40 MG TABLET.DR PO SCH (09:14)
[2019-11-16] MEDS: MAGNESIUM OXIDE 400 MG TABLET PO SCH (09:14)
[2019-11-16] MEDS: AMIODARONE HCL 200 MG TABLET PO SCH (09:14)
[2019-11-16] MEDS: GABAPENTIN 300 MG CAPSULE PO SCH ×3 (09:14→16:35)
[2019-11-16] MEDS: APIXABAN 5 MG TABLET PO SCH ×2 (09:16→16:37)
[2019-11-16] MEDS: Z GUARD REMEDY 4 OZ OINT TP SCH ×2 (09:17→21:37)
[2019-11-16] MEDS: CLOTRIMAZOLE 1% 15 GM TUBE TP SCH ×3 (09:18→16:42)
--- NOTE | 2019-11-16 13:34 | NUR ---
Facility Contact: LEILA spoke with Ally admin coordinator at [facility] (ph: [phone] fax: [phone]) who confirmed patient is accepted to their facility and was requesting updated clinicals. This sheet writer faxed Ally patient's progress notes and medications.
[2019-11-16 16:00] VITALS: BP 149/62
[2019-11-16 19:52] VITALS: BP 143/74
[2019-11-16] MEDS: LORAZEPAM 0.5 MG TABLET PO PRN (20:10)
[2019-11-16] MEDS: TAMSULOSIN 0.4 MG CAP.SR.24H PO SCH (21:37)
--- NOTE | 2019-11-17 07:05 | NUR ---
GPS RN OPENING NOTES RECEIVED PT IN BED. PT REMAIN AO X 1, ABLE TO RESPONDS ALL STIMULI. DISORGANIZE,NEEDY,DEMANDING, PARANOID ,SUSPICIOUS NO S/S OF ANY ACUTE DISTRESS NOTED, NEEDS FREQUENTLY REDIRECTIONS ALL NEEDS ATTENDED ANTICIPATED. ENCOURAGED PT. TO VERBALIZED ANY FEELING OR CONCERNED. DENIES SI/HI. PT COMPLIANT TO MEDS/CARE.SAFETY PRECAUTION IN PLACE AND MAINTAINED AT ALL TIMES. BED IN LOWEST LOCKED POSITION, HOB ELEVATED, RAILS UP X 2, CALL LIGHT WITHIN REACH. W ILL CONTINUE TO MONITOR FOR SAFETY BEHAVIOR Q15 AND PER PROTOCOL
[2019-11-17 08:00] VITALS: BP 137/73
[2019-11-17] MEDS: PANTOPRAZOLE 40 MG TABLET.DR PO SCH (08:03)
[2019-11-17] MEDS: POTASSIUM CHLORIDE 20 MEQ TAB.PRT.SR PO SCH (08:44)
[2019-11-17] MEDS: AMIODARONE HCL 200 MG TABLET PO SCH (08:44)
[2019-11-17] MEDS: GABAPENTIN 300 MG CAPSULE PO SCH ×3 (08:44→16:55)
[2019-11-17] MEDS: HALOPERIDOL 5 MG TABLET PO SCH ×2 (08:45→16:55)
[2019-11-17] MEDS: MAGNESIUM OXIDE 400 MG TABLET PO SCH (08:45)
[2019-11-17] MEDS: METFORMIN 500 MG TABLET PO SCH ×2 (08:45→16:56)
[2019-11-17] MEDS: APIXABAN 5 MG TABLET PO SCH ×2 (08:49→16:58)
[2019-11-17] MEDS: Z GUARD REMEDY 4 OZ OINT TP SCH ×2 (08:50→21:25)
[2019-11-17] MEDS: CLOTRIMAZOLE 1% 15 GM TUBE TP SCH ×2 (09:32→16:59)
--- NOTE | 2019-11-17 10:07 | NUR ---
PT NOTED WITH SACRAL REDNESS AND SACRAL OPEN SKIN. WOUND/SKIN CARE MANAGEMENT PROVIDED, PT KEPT CLEAN AND DRY PRN, SKIN BARRIER (Z-GUARD) ADMINISTERED ANTICIPATED PER ORDER. WOUND CONSULT TRIGGERED. CATHI, CHARGE NURSE MAD AWARE, WILL CONTINUE TO MONITOR
--- NOTE | 2019-11-17 10:38 | NUR ---
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 THERE IS IMPROVEMENT IN RASH AND INCONTINENCE ASSOCIATED SKIN DAMAGE. PT CONTINUES TO BE INCONTINENT OF URINE AND STOOL. ALL SKIN PROTECTION RECOMMENDATIONS DISCUSSED WITH NURSING STAFF. MD IN AGREEMENT WITH PLAN OF CARE. Addendum: 11/17/19 at 1039 by MADI PIRES WNDNU Amended: Links added.
--- NOTE | 2019-11-17 10:40 | NUR ---
PT ASSESSED BY MADI WOUND NURSE. RECEIVED SKIN PROTECTION RECOMMENDATIONS. WILL CONTINUE WITH PLAN OF CARE AND CONTINUE TO MONITOR
--- NOTE | 2019-11-17 11:55 | NUR ---
PT PENDING POSSIBLE DISCHARGE TOMORROW. COVID SWAB IN [facility] COLLECTED AT THIS TIME FOR SNF PLACEMENT. WILL CONTINUE TO MONITOR AND CONTINUE WITH PLAN OF CARE
--- NOTE | 2019-11-17 12:08 | NUR ---
Family Contact: LEILA left a voicemail for Patients daughterBrandi ([phone]) and informed of the patient' discharge plan tomorrow to [facility]. Addendum: 11/17/19 at 1434 by ALEX BRYSON Spoke with Brandi regarding patient's discharge plans for tomorrow and Brandi is aware and agreeable with the placement.
--- NOTE | 2019-11-17 15:07 | NUR ---
RECEIVED PT'S COVID 19 NEGATIVE RESULT FROM [facility] BANKING AND FINANCE INSTRUCTOR AT THIS TIME. REPORT READ BACK. WILL CONTINUE TO MONITOR
[2019-11-17 16:00] VITALS: BP 128/69
[2019-11-17 16:43] LABS: CALCIUM, SERUM 9.6 mg/dL (8.5-10.1); CARBON DIOXIDE 25 mmol/L (21-32); CHLORIDE 103 mmol/L (98-107); CREATININE 1.5 mg/dL (0.6-1.3); GLUCOSE 184 mg/dL (74-106); POTASSIUM 4.6 mmol/L (3.5-5.1); SODIUM SERUM 137 mmol/L (136-145); UREA NITROGEN, BLOOD 36 mg/dL (7-18)
--- NOTE | 2019-11-17 18:35 | NUR ---
GPS RN CLOSING NOTES PT RESTING IN BED AT THIS TIME. PT REMAINED STABLE THROUGHOUT SHIFT. PT KEPT CLEAN AND DRY. ALL CARE, NEEDS, MEDICATION AND TREATMENT ADMINISTERED ANTICIPATED PER ORDER. PT REPOSITIONED Q2HR, PRN AND PER PROTOCOL. SAFETY PRECAUTION IN PLACE AND MAINTAINED AT ALL TIMES. BED IN LOWEST LOCKED POSITION, HOB ELEVATED, RAILS UP, CALL LIGHT WITHIN REACH. WILL ENDORSE TO CARPENTER REFRIGERATOR NURSE FOR DELMY
--- NOTE | 2019-11-17 20:45 | NUR ---
GPS RN NOTE NOTIFED DR. WEATHERS THAT THE PTS BUN WAS 36, DR STATED "NO NEW ORDERS", WILL CONTINUE TO ENCOURAGE FLUIDS AND MONITOR Q15 MIN FOR SAFETY AND BEHAVIOR.
[2019-11-17 20:51] VITALS: BP 153/72
[2019-11-17] MEDS: TAMSULOSIN 0.4 MG CAP.SR.24H PO SCH (21:25)
[2019-11-18] MEDS: PANTOPRAZOLE 40 MG TABLET.DR PO SCH (07:47)
[2019-11-18 08:00] VITALS: BP 128/51
[2019-11-18 08:25] VITALS: BP 118/81
[2019-11-18] MEDS: METFORMIN 500 MG TABLET PO SCH (08:25)
[2019-11-18] MEDS: AMIODARONE HCL 200 MG TABLET PO SCH (08:25)
[2019-11-18] MEDS: GABAPENTIN 300 MG CAPSULE PO SCH ×2 (08:25→12:17)
[2019-11-18] MEDS: HALOPERIDOL 5 MG TABLET PO SCH (08:25)
[2019-11-18] MEDS: MAGNESIUM OXIDE 400 MG TABLET PO SCH (08:25)
[2019-11-18] MEDS: APIXABAN 5 MG TABLET PO SCH (08:26)
[2019-11-18] MEDS: POTASSIUM CHLORIDE 20 MEQ TAB.PRT.SR PO SCH (08:31)
[2019-11-18] MEDS: Z GUARD REMEDY 4 OZ OINT TP SCH (08:36)
[2019-11-18] MEDS: CLOTRIMAZOLE 1% 15 GM TUBE TP SCH (08:36)
--- NOTE | 2019-11-18 10:49 | NUR ---
Discharge Note: Patient will be discharged today to [facility] [address] [place] [address] ([phone]) via ambulance transportation at 11:00AM. Spoke with Ally death clearance coordinator at the facility who confirmed patients arrival today. Patient is aware and agreeable with discharge plans. Patient presents with appropriate mood and congruent affect. Patient denies suicidal or homicidal ideation. Patients daughterBrandi ([phone]) is made aware and is agreeable with discharge plans. Patient will be following up with Psychiatrist Dr. Kim and Director Game Dr. Lobato at [facility] [address] [place] [address] ([phone]).
--- NOTE | 2019-11-18 12:17 | NUR ---
RN NOTES PATIENT REFUSED TO TAKE GABAPENTIN DESPITE OF EXPLANATION OF RISKS AND BENEFITS.
--- NOTE | 2019-11-18 12:31 | NUR ---
RN NOTES PATIENT REFUSED SKIN PHOTO TAKEN DESPITE OF EXPLANATION OF RISKS AND BENEFITS.
== END 2019-11-18 13:10 | DRG 885 ==
LOC: GPS 19:44
PROVIDERS: ADMIT Psychiatry & Neurology Psychiatry; ATTEND Internal Medicine
DX: F20.0 Paranoid schizophrenia (principal); F05 Delirium due to known physiological condition; N17.9 Acute kidney failure, unspecified; N18.9 Chronic kidney disease, unspecified; F03.91 Unspecified dementia, unspecified severity, with behavioral disturbance; F29 Unspecified psychosis not due to a substance or known physiological condition; F41.9 Anxiety disorder, unspecified; E83.42 Hypomagnesemia; E87.6 Hypokalemia; F32.9 Major depressive disorder, single episode, unspecified; I48.0 Paroxysmal atrial fibrillation; N40.0 Benign prostatic hyperplasia without lower urinary tract symptoms; Z79.01 Long term (current) use of anticoagulants; E11.22 Type 2 diabetes mellitus with diabetic chronic kidney disease
CPT/HCPCS: 36415; 80048-TC; 80061-TC; 82962-TC; 83735-TC; 85025-TC; 97530-TC; J1815